=== PATIENT | male | born 1995 | race African-American/Black ===

== ENCOUNTER 2019-04-05 14:48 | Inpatient (IN) | payer OTHER ==
--- NOTE | 2019-04-05 15:05 | PDOC ---
Rapid Medical Evaluation Time Seen by Provider: 04/05/19 15:00 Medical Evaluation: Allergies Allergy/AdvReac Type Severity Reaction Status Date / Time No Known Allergies Allergy Verified 04/05/19 15:02 Vital Signs Temp Pulse Resp BP Pulse Ox 98.4 F 63 18 130/62 99 04/05/19 15:01 04/05/19 15:01 04/05/19 15:01 04/05/19 15:01 04/05/19 15:01 04/05/19 15:03 The patient c/o: right lower abd pain w/ constipation x 1 week, on satruday took pepto and MOM and now having diarrhea and worsening cramping, no other complaints Patient on brief exam: right lower abd pain, bs + x 4 Patient ordered for: labs, kub Patient to proceed to the ED Discharge Disposition - Diagnosis Abdominal pain - Referrals - Patient Instructions - Post Discharge Activity
[2019-04-05] MEDS ORDERED: ACETAMINOPHEN 1000 MG/100 ML VIAL (NON FORMULARY) IVPB ONE (15:42)
[2019-04-05 15:49] LABS: BASO % 0.3 % (0-2.0); HEMATOCRIT 46.8 % (35.4-49); HEMOGLOBIN 15.7 GM/dL (11.7-16.9); LYMPH % 10.9 % (8-40); MCH 27.8 pg (25.7-33.7); MCHC 33.5 g/dl (32.0-35.9); MEAN CELL VOLUME 82.9 fl (80-96); MEAN PLT VOLUME 8.4 fl (7.5-11.1); MONO % 10.8 % (3.8-10.2); PLATELET COUNT 276 K/MM3 (134-434); RBC 5.65 M/mm3 (4.00-5.60); RDW 13.8 % (11.9-15.9); WHITE BLOOD COUNT 12.7 K/mm3 (4.0-10.0)
[2019-04-05] MEDS ORDERED: ACETAMINOPHEN INJECTION 100 ML IVPB ONE (15:55)
[2019-04-05 16:13] LABS: URINE APPEARANCE CLEAR; URINE BILIRUBIN NEGATIVE (NEGATIVE); URINE COLOR YELLOW; URINE GLUCOSE (UA) NEGATIVE (NEGATIVE); URINE KETONE TRACE (NEGATIVE); URINE LEUK ESTERASE NEGATIVE (NEGATIVE); URINE NITRITE NEGATIVE (NEGATIVE); URINE PROTEIN NEGATIVE (NEGATIVE); URINE UROBILINOGEN 0.2 mg/dL (0.2-1.0)
--- NOTE | 2019-04-05 16:37 | PDOC ---
History of Present Illness - General Chief Complaint: Pain, Acute Stated Complaint: LOWER ABN PAIN Time Seen by Provider: 04/05/19 15:00 History Source: Patient Exam Limitations: No Limitations - History of Present Illness Initial Comments: Pt is a 23 yo M, with no significant PMH, who is presenting with complaints of constipation and progressing abdominal pain. Pt states for the last 1.5 weeks, the pt has had constipation, which is abnormal for him. Pt took miralax and mag citrate 3 days ago, which produced abdominal cramping and loose stool every hour since then. Pt also is lactose intolerant, and ate ice cream before the onset of diarrhea. Pt states the abdominal pain is worsening, and has shifted from his mid abdomen to his RLQ since yesterday. The pain is sharp and cramping , comes in waves, and is worsened with movement. Pt denies GI history. Pt also states he has had to "strain to urinate" since the constipation started, but denies hematuria or frequency. Pt denies any fevers/chills, headache, vision changes, syncope, chest pain, palpitations, SOB, nausea/vomiting, testicular pain or swelling, penile discharge or lesions, or leg swelling. Social: Pt endorses social alcohol use. Pt denies any cigarette or drug use. Pt denies any recent travel or sick contacts. Surgical: no relevant history. Family: no relevant history. No family appendicitis, kidney stones, GI issues. 04/05/19 16:37 Past History - Travel Traveled outside of the country in the last 30 days: No Close contact w/someone who was outside of country & ill: No - Past Medical History Allergies/Adverse Reactions: Allergies Allergy/AdvReac Type Severity Reaction Status Date / Time No Known Allergies Allergy Verified 04/05/19 15:02 Home Medications: Ambulatory Orders NK [No Known Home Medication] 04/05/19 COPD: No - Suicide/Smoking/Psychosocial Hx Smoking History: Never smoked Have you smoked in the past 12 months: No Information on smoking cessation initiated: No Hx Alcohol Use: No Drug/Substance Use Hx: No Review of Systems - Review of Systems Able to Perform ROS?: Yes Is the patient limited Albanian proficient: No Constitutional: No: Chills, Diaphoresis, Fever, Loss of Appetite, Malaise, Weakness, Weight Stable HEENTM: No: Recent change in vision, Nose Congestion, Throat Pain, Throat Swelling Respiratory: No: Cough, Orthopnea, Shortness of Breath Cardiac (ROS): No: Chest Pain, Edema, Irregular Heart Rate, Lightheadedness, Palpitations, Syncope, Chest Tightness ABD/GI: Yes: See HPI, Constipated, Diarrhea, Poor Appetite, Poor Fluid Intake, Abdominal cramping. No: Abdominal Distended, Nausea, Vomiting, Indigestion : Yes: Other ("strain" to urinate, no dysuria). No: Burning, Dysuria, Discharge, Frequency, Flank Pain, Hematuria, Pain, Urgency, Testicular Swelling , Lesions, Testicular Pain Musculoskeletal: No: Back Pain, Joint Pain Integumentary: No: Rash Neurological: No: Headache, Weakness, Dizziness Psychiatric: No: Sleep Pattern Change, Change in Appetite Endocrine: No: Increased Urine, Change in Weight Hematologic/Lymphatic: No: Anemia, Blood Clots, Easy Bleeding, Easy Bruising All Other Systems: Reviewed and Negative *Physical Exam - Vital Signs Last Vital Signs Temp Pulse Resp BP Pulse Ox 98.4 F 63 18 130/62 99 04/05/19 15:04/05/19 15:04/05/19 15:04/05/19 15:04/05/19 15:01 - Physical Exam Comments: Vitals stable, pt afebrile. Pt in NAD, normal body habitus. Pt alert and oriented x3. oven drier tender generally intact, muscular strength and sensation intact. No midline spinal tenderness, step-offs, or crepitus. Head normocephalic, atraumatic. Eyes PERRLA, EOMI. Oropharynx without erythema or exudates, no LAD b/l. No nasal congestion, hearing intact. Clear heart sounds, S1/S2, no JVD, b/l pedal edema, or heart murmur. Clear lung sounds, no respiratory distress, wheezes, crackles, or accessory muscle use. RLQ abdominal tenderness to palpation. No CVA tenderness to palpation, no rebound, no guarding. Abdomen soft, non-distended, and with normoactive bowel sounds. No abdominal tenderness with hip flexion or extension. No testicular TTP. No penile discharge nor lesions. Skin without jaundice or rash. 04/05/19 16:30 ED Treatment Course - LABORATORY CBC & Chemistry Diagram: 04/05/19 15:40 04/05/19 15:40 - ADDITIONAL ORDERS Additional order review: Laboratory Results 04/05/19 16:00 Urine Color Yellow Urine Appearance Clear Urine pH 6.0 Ur Specific [place] 1.028 Urine Protein Negative Urine Glucose (UA) Negative Urine Ketones Trace H Urine Blood Negative Urine Nitrite Negative Urine Bilirubin Negative Urine Urobilinogen 0.2 Ur Leukocyte Esterase Negative 04/05/19 15:40 RBC 5.65 H MCV 82.9 MCHC 33.5 RDW 13.8 MPV 8.4 Neutrophils % 77.0 Lymphocytes % 10.9 Monocytes % 10.8 H Eosinophils % 1.0 Basophils % 0.3 - RADIOLOGY Radiology Studies Ordered: Category Date Time Status ABDOMEN & PELVIS CT WITH CONTR [CT] Stat CT Scan 04/05/19 16:15 Ordered ABDOMEN FLAT & UPRIGHT [RAD] Stat Radiology 04/05/19 16:26 Ordered - Medications Given in the ED: ED Medications Discontinued Medications Generic Name Dose Route Start Last Admin Trade Name Freq PRN Reason Stop Dose Admin Acetaminophen 1,000 mg 04/05/19 15:42 04/05/19 16:00 Ofirmev Injection - IVPB 04/05/19 15:43 1,000 mg ONCE ONE Administration Medical Decision Making - Medical Decision Making Pt was seen at bedside, also will be seen by attending Dr. Abel. Pt presenting with complaints of constipation and progressing abdominal pain. Pt states for the last 1.5 weeks, the pt has had constipation, which is abnormal for him. Pt took miralax and mag citrate 3 days ago, which produced abdominal cramping and loose stool every hour since then. Pt also is lactose intolerant, and ate ice cream before the onset of diarrhea. Pt states the abdominal pain is worsening, and has shifted from his mid abdomen to his RLQ since yesterday. The pain is sharp and cramping, comes in waves, and is worsened with movement. Pt denies GI history. Pt also states he has had to "strain to urinate" since the constipation started, but denies hematuria or frequency. Pt denies any fevers/ chills, headache, vision changes, syncope, chest pain, palpitations, SOB, nausea /vomiting, testicular pain or swelling, penile discharge or lesions, or leg swelling. Considering appendicitis vs acute GI virus/bacterial infection vs diverticulitis vs colitis vs constipation worsened by dietary intolerances. Ordered work-up including CBC, CMP, UA, urine g/c/trichomonas, abdominal x-ray ( ordered in fast track), and abd/pelvis CT with IV contrast to eval for appendicitis and colitis. Provided 1 g ofirmev for improvement of pain. Will continue to reassess pt and monitor for symptomatic improvement. 04/05/19 16:32 CBC: WBC elevated 12.7 CMP WNL Pt taken for CT scan UA WNL, no evidence of UTI 04/05/19 17:20 CT abd/pelvis: Impression: Findings are seen within the right lower quadrant which could be on the basis of appendicitis with contiguous tubular shaped abscesses versus secondary to inflammatory bowel disease possibly with associated abscesses. Additional evaluation utilizing supplemental CT with oral contrast is suggested. 04/05/19 17:25 Pt placed NPO. Paging surgical team. Providing 4.5 g IV zosyn. 04/05/19 17:[address] Napier, who agrees with abx choice, and suggests admission to med /surg to treat abscess. Pt admitted to hospitalist team (Dr. Mendez). Pt stable and awaiting bed. 04/05/19 18:58 *DC/Admit/Observation/Transfer Diagnosis at time of Disposition: Appendicitis with abscess Abdominal pain Qualifiers: Abdominal location: right lower quadrant Qualified Code(s): R10.31 - Right lower quadrant pain - Discharge Dispostion Condition at time of disposition: Stable Decision to Admit order: Yes - Referrals - Patient Instructions - Post Discharge Activity
[2019-04-05 16:45] LABS: ALBUMIN 4.3 g/dl (3.4-5.0); BILIRUBIN,TOTAL 0.7 mg/dL (0.2-1); CALCIUM 9.6 mg/dL (8.5-10.1); CREATININE 0.9 mg/dL (0.55-1.3); POTASSIUM 4.5 mmol/L (3.5-5.1); TOT PROT 8.9 g/dl (6.4-8.2)
[2019-04-05] MEDS ORDERED: PIPERACILLIN/TAZOB 3.375 GM 4.5 GM in DEXTROSE 5%-WATER - 50 ML IVPB ONE (17:23)
[2019-04-05] MEDS ORDERED: PIPERACILLIN/TAZOB 4.5 GM 4.5 GM/100 ML BAG IVPB ONE (18:17)
--- NOTE | 2019-04-05 18:20 | HP ---
CHIEF COMPLAINT:Abdominal Pain , Diarrhea PCP:none HISTORY OF PRESENT ILLNESS: 23YOM with no significant past medical history, presenting with diarrhea and RLQ abdominal cramping. As per patient, he was constipated for a week and experiencing RLQ abdominal pain thus, he took Pepto Bismol and Magnesium Citrate 4 days ago onsetting his current symptoms. He notes mild straining with urination secondary to his symptoms, prompting his arrival to the ED. Denies any testicular pain or discharge. Denies fever, chills, chest pain, SOB, palpitation, dizziness, weakness, N, V, D, leg swelling, No sick contacts or travel. No new changes in medications. No suspicious food intake Allergies: None Past Medical History: as documented in EMR/HPI Social history: Lives with family. No tobacco, ETOH or drug use. Surgical history: None reported. Meds: as documented in EMR PMD: Patient does not follow with a PCP. ER course was notable for: (1)cbc, cmp (2)CT Abdomen /pelvic (3)Zosyn and IV fluids Recent Travel: denies PAST MEDICAL HISTORY: constipation , lactose intolerance PAST SURGICAL HISTORY: none Social History: Smoking:denies Alcohol:socially Drugs: denies Family History:non contributory Allergies No Known Allergies Allergy (Verified 04/05/19 15:02) HOME MEDICATIONS: Home Medications Medication Instructions Recorded NK [No Known Home Medication] 04/05/19 REVIEW OF SYSTEMS CONSTITUTIONAL: Absent: fever, chills, diaphoresis, generalized weakness, malaise, loss of appetite, weight change HEENT: Absent: rhinorrhea, nasal congestion, throat pain, throat swelling, difficulty swallowing, mouth swelling, ear pain, eye pain, visual changes CARDIOVASCULAR: Absent: chest pain, syncope, palpitations, irregular heart rate, lightheadedness , peripheral edema RESPIRATORY: Absent: cough, shortness of breath, dyspnea with exertion, orthopnea, wheezing, stridor, hemoptysis GASTROINTESTINAL: Absent: abdominal pain, abdominal distension, nausea, vomiting, diarrhea, constipation, melena, hematochezia GENITOURINARY: Absent: dysuria, frequency, urgency, hesitancy, hematuria, flank pain, genital pain MUSCULOSKELETAL: Absent: myalgia, arthralgia, joint swelling, back pain, neck pain SKIN: Absent: rash, itching, pallor HEMATOLOGIC/IMMUNOLOGIC: Absent: easy bleeding, easy bruising, lymphadenopathy, frequent infections ENDOCRINE: Absent: unexplained weight gain, unexplained weight loss, heat intolerance, cold intolerance NEUROLOGIC: Absent: headache, focal weakness or paresthesias, dizziness, unsteady gait, seizure, mental status changes, bladder or bowel incontinence PSYCHIATRIC: Absent: anxiety, depression, suicidal or homicidal ideation, hallucinations. PHYSICAL EXAMINATION Vital Signs - 24 hr 04/05/19 15:01 Temperature 98.4 F Pulse Rate 63 Respiratory 18 Rate Blood Pressure 130/62 O2 Sat by Pulse 99 Oximetry (%) GENERAL: AAOx3 in NAD HEAD: NC/AT EYES: EOMI, Conjunctiva clear, sclera anicteric ENT: moist mucous membrane NECK: Supple, no JVD LUNGS: CTA B/L, no crackles no wheezing no accessory muscle use. HEART: RRR, NSR, normal s1, s2, murmur no M/R/G ABDOMEN: Soft, RLQ and suprapubic tenderness pswas is negative [place] burnie postive , +BS 4 Q, no CVA Tenderness LOWER EXTREMITIES: no edema, +2DP pulse, NEUROLOGICAL: No focal deficit. Normal speech. gait not observed. PSYCHIATRIC: Cooperative. Good eye contact. Appropriate mood and affect. SKIN: Warm, dry, Laboratory Results - last 24 hr 04/05/19 04/05/19 04/05/19 15:40 15:40 16:00 WBC 12.7 H RBC 5.65 H Hgb 15.7 Hct 46.8 MCV 82.9 MCH 27.8 MCHC 33.5 RDW 13.8 Plt Count 276 MPV 8.4 Absolute Neuts (auto) 9.8 H Neutrophils % 77.0 Lymphocytes % 10.9 Monocytes % 10.8 H Eosinophils % 1.0 Basophils % 0.3 Nucleated RBC % 0 Sodium 136 Potassium 4.5 Chloride 101 Carbon Dioxide 25 Anion Gap 10 BUN 13 Creatinine 0.9 Est GFR (CKD-EPI)AfAm 139.04 Est GFR (CKD-EPI)NonAf 119.96 Random Glucose 69 L Calcium 9.6 Total Bilirubin 0.7 AST 29 ALT 40 Alkaline Phosphatase 124 H Total Protein 8.9 H Albumin 4.3 Urine Color Yellow Urine Appearance Clear Urine pH 6.0 Ur Specific [place] 1.028 Urine Protein Negative Urine Glucose (UA) Negative Urine Ketones Trace H Urine Blood Negative Urine Nitrite Negative Urine Bilirubin Negative Urine Urobilinogen 0.2 Ur Leukocyte Esterase Negative CBC, BMP 04/05/19 15:40 04/05/19 15:40 ASSESSMENT/PLAN: 23 year old male with history of constipation and lactose intolerance presented with 10 days history of abdominal pain was found to have appendicitis with possible abscess admitted to M/S for observation # Acute appendicitis with possible abscess * mild leukocytosis and RLL pain with positive CT scan * NPO * IV fluids RL@ 125 CC/hr * pain control Morphine 2 Mg IV Q 8hr * Zosyn IV Q 8hr * CT A/P reviewed will repeat with oral contrast * Surgery consult DR Napier * DVTS proph SCDS * repeat labs in AM , cbc , cmp , Type and screen , INR , PTT * Monitor lytes * Admit to M/S # Constipation * educated about life style change ,exercise and high fiber diet Visit type - Emergency Visit Emergency Visit: Yes ED Registration Date: 04/05/19 Care time: The patient presented to the Emergency Department on the above date and was hospitalized for further evaluation of their emergent condition. - New Patient This patient is new to me today: Yes Date on this admission: 04/05/19 - Critical Care Critical Care patient: No
--- NOTE | 2019-04-05 18:45 | PN ---
Teaching Attending Note Name of Resident: Ko Esparza ATTENDING PHYSICIAN STATEMENT I saw and evaluated the patient. I reviewed the resident's note and discussed the case with the resident. I agree with the resident's findings and plan as documented. SUBJECTIVE: Ongoing RLQ abdominal pain. No nausea/vomiting. Vague History of bloody diarrhea on Thursday. OBJECTIVE: Afebrile, Hemodynamically Stable. Last Vital Signs Temp Pulse Resp BP Pulse Ox 98.4 F 63 18 130/62 99 04/05/19 15:01 04/05/19 15:01 04/05/19 15:01 04/05/19 15:04/05/19 15:01 HEENT - Atraumatic, Normocephalic Heart - S1, S2, RRR Lungs - Clear to auscultation Abdomen - Soft, RLQ tenderness. Bowel Sounds normal. Extremities - No edema, no calf tenderness Laboratory Results - last 24 hr 04/05/19 04/05/19 04/05/19 15:40 15:40 16:00 WBC 12.7 H RBC 5.65 H Hgb 15.7 Hct 46.8 MCV 82.9 MCH 27.8 MCHC 33.5 RDW 13.8 Plt Count 276 MPV 8.4 Absolute Neuts (auto) 9.8 H Neutrophils % 77.0 Lymphocytes % 10.9 Monocytes % 10.8 H Eosinophils % 1.0 Basophils % 0.3 Nucleated RBC % 0 Sodium 136 Potassium 4.5 Chloride 101 Carbon Dioxide 25 Anion Gap 10 BUN 13 Creatinine 0.9 Est GFR (CKD-EPI)AfAm 139.04 Est GFR (CKD-EPI)NonAf 119.96 Random Glucose 69 L Calcium 9.6 Total Bilirubin 0.7 AST 29 ALT 40 Alkaline Phosphatase 124 H Total Protein 8.9 H Albumin 4.3 Urine Color Yellow Urine Appearance Clear Urine pH 6.0 Ur Specific [place] 1.028 Urine Protein Negative Urine Glucose (UA) Negative Urine Ketones Trace H Urine Blood Negative Urine Nitrite Negative Urine Bilirubin Negative Urine Urobilinogen 0.2 Ur Leukocyte Esterase Negative Home Medications Medication Instructions Recorded NK [No Known Home Medication] 04/05/19 ASSESSMENT AND PLAN: 23 year old male with history of constipation presents with over 1 week history of RLQ abdominal discomfort with associated constipation, followed by profuse watery diarrhea after taking MOM. He reports some red watery stool 3 days ago, now just watery, no blood or mucus. No fever/chills. No nausea/vomiting. Acute Appendicitis with contiguous Abscesses versus IBD with abscess Afebrile, Hemodynamically Stable. Mild leukocytosis. No need for Surgery currently as per Dr. Napier, who recommends repeat CT A/P with oral contrast NPO, IV Abx (Zosyn), IV fluids. Analgesia with IV Morphine. GI consult tomorrow depending on results of repeat CT A/P with oral contrast. DVT Px - SCDs. Heparin held in the event of urgent surgery
--- NOTE | 2019-04-05 18:56 | PDOC ---
Documentation entered by Annabel Jaeger SCRIBE, acting as scribe for Abby Abel MD. Abby Abel MD: This documentation has been prepared by the Heide acuña Nirvannie, SCRIBE, under my direction and personally reviewed by me in its entirety. I confirm that the documentation accurately reflects all work, treatment, procedures, and medical decision making performed by me. Attending Attestation - Resident Resident Name: ShelbiMakayla - ED Attending Attestation I have performed the following: I have examined & evaluated the patient, The case was reviewed & discussed with the resident, I agree w/resident's findings & plan - HPI HPI: 04/05/19 17:16 23YOM with no significant past medical history, presenting with diarrhea and RLQ abdominal cramping. As per patient, he was constipated for a week and experiencing RLQ abdominal pain thus, he took Pepto Bismol and Magnesium Citrate 4 days ago onsetting his current symptoms. He notes mild straining with urination secondary to his symptoms, prompting his arrival to the ED. Denies any testicular pain or discharge. Denies fever, chills, chest pain, SOB, palpitation, dizziness, weakness, N, V, D, leg swelling, No sick contacts or travel. No new changes in medications. No suspicious food intake Allergies: None Past Medical History: as documented in EMR/HPI Social history: Lives with family. No tobacco, ETOH or drug use. Surgical history: None reported. Meds: as documented in EMR PMD: Patient does not follow with a PCP. - Physicial Exam PE: 04/05/19 17:17 Agree with the resident's HPI and PE as documented in the electronic medical record. NAD, well appearing, EOMI, PERRL, MMM, nl conjunctiva, anicteric; neck supple. lungs clear, RRR, abdomen soft +RLQ tenderness. Back nontender. ALMARAZ x4, no focal neuro deficits. No peripheral edema. normal color for ethnicity, WWP. exam unremarkable, performed by resident. 04/05/19 18:56 04/05/19 18:56 - Medical Decision Making 04/05/19 18:53 History of present illness physical examination as documented Vital signs reviewed, normal, no fevers. Basic laboratory results were initiated for him RME, remarkable for leukocytosis of 12 K, otherwise lites and chemistries are normal. Analgesia, IV fluids, nothing by mouth. CT imaging obtained to evaluate for alternative etiology of his abdominal pain including appendectomy sinusitis, abscess, mesenteric adenitis, urinary tract infection, hernia, diverticulitis, colitis, constipation. CT imaging revealed IBD versus abscess adjacent to the appendix. Surgery consultation with Dr. Napier, medical management for now, by mouth contrast and admit for medical management for now, possible surgical intervention at this time pending repeat imaging. 04/06/19 12:26
[2019-04-05] MEDS ORDERED: LACTATED RINGERS SOLUTION 1,000 ML IV SCH (19:00)
[2019-04-05 20:13] VITALS: BMI 26.9
[2019-04-05] MEDS: MORPHINE SULFATE 2 MG/ML VIAL IVPUSH PRN (20:18)
[2019-04-05] MEDS ORDERED: PIPERACILLIN/TAZOBACTAM 3.375 GM VIAL IVPB ONE (20:33)
[2019-04-05] MEDS ORDERED: MORPHINE SULFATE 2 MG/ML VIAL IVPUSH ONE (22:37)
[2019-04-05] MEDS ORDERED: MORPHINE SULFATE 2 MG/ML VIAL SQ ONE (22:37)
[2019-04-06] MEDS ORDERED: ACETAMINOPHEN 1000 MG/100 ML VIAL (NON FORMULARY) IVPB PRN (02:37)
[2019-04-06] MEDS ORDERED: PIPERACILLIN/TAZOBACTAM 3.375 GM VIAL IVPB ONE ×3 (02:40→17:51)
[2019-04-06] MEDS ORDERED: DEXTROSE 5%-WATER - 50 ML IVPB ONE ×3 (02:40→17:51)
[2019-04-06] MEDS: PIPERACILLIN/TAZOB 3.375 GM 3.375 GM in DEXTROSE 5%-WATER - 50 ML IVPB SCH ×2 (02:54→09:13)
[2019-04-06] MEDS: MORPHINE SULFATE 2 MG/ML VIAL IVPUSH PRN ×2 (07:57→22:06)
[2019-04-06 08:59] LABS: BASO % 0.2 % (0-2.0); EOS % 0.3 % (0-4.5); HEMATOCRIT 40.7 % (35.4-49); HEMOGLOBIN 13.9 GM/dL (11.7-16.9); LYMPH % 5.2 % (8-40); MCH 27.9 pg (25.7-33.7); MCHC 34.1 g/dl (32.0-35.9); MEAN PLT VOLUME 8.1 fl (7.5-11.1); MONO % 11.7 % (3.8-10.2); NEUT % 82.6 % (42.8-82.8); PLATELET COUNT 257 K/MM3 (134-434); RBC 4.97 M/mm3 (4.00-5.60); RDW 13.7 % (11.9-15.9); WHITE BLOOD COUNT 15.1 K/mm3 (4.0-10.0)
[2019-04-06 09:07] LABS: INR 1.35 (0.83-1.09)
[2019-04-06 09:10] LABS: ACTIVATED PTT 35.4 SECONDS (25.2-36.5)
[2019-04-06 09:34] LABS: ALBUMIN 3.5 g/dl (3.4-5.0); BILIRUBIN,TOTAL 0.8 mg/dL (0.2-1); CALCIUM 9.1 mg/dL (8.5-10.1); POTASSIUM 4.8 mmol/L (3.5-5.1); TOT PROT 7.4 g/dl (6.4-8.2)
[2019-04-06] MEDS ORDERED: MORPHINE SULFATE 2 MG/ML VIAL IVPUSH ONE (09:59)
--- NOTE | 2019-04-06 10:42 | CONSULT ---
- Consultation REQUESTING PROVIDER: Shelbi COLLADO CONSULT REQUEST: We have been asked to surgically evaluate this patient for ( specify). PCP:Rudi Mendez MD HISTORY OF PRESENT ILLNESS: ANUEL who is a 23 y/o male who presented to the [facility] ED w/ RLQ pain of ? 2 days preceeded by a few days of cramps and/or constipation ; pain which was first generalized then became localized to the RLQ; he has some diarrhea; he took some laaxatives; he has nausea and no vomiting; he denies any other GI/ c/o; pain is worse w/lying still and worse w/moving around; pain is constant and " knife like " in the RLQ; he has NOC. PMHx: none PSHx: none Home Medications Medication Instructions Recorded NK [No Known Home Medication] 04/05/19 Allergies Allergy/AdvReac Type Severity Reaction Status Date / Time No Known Allergies Allergy Verified 04/05/19 15:02 REVIEW OF SYSTEMS: CONSTITUTIONAL: Absent: fever, chills, diaphoresis, generalized weakness, malaise, loss of appetite, weight change CARDIOVASCULAR: Absent: chest pain, syncope, palpitations, irregular heart rate, lightheadedness , peripheral edema RESPIRATORY: Absent: cough, shortness of breath, dyspnea with exertion, wheezing, stridor, hemoptysis GASTROINTESTINAL: Absent: abdominal pain, abdominal distension, nausea, vomiting, diarrhea, constipation, melena, hematochezia GENITOURINARY: Absent: dysuria, frequency, urgency, hesitancy, hematuria, flank pain, genital pain MUSCULOSKELETAL: Absent: myalgia, arthralgia, joint swelling, back pain, neck pain SKIN: Absent: rash, itching, pallor HEMATOLOGIC/IMMUNOLOGIC: Absent: easy bleeding, easy bruising, lymphadenopathy NEUROLOGIC: Absent: headache, focal weakness, paresthesias, dizziness, unsteady gait, seizure, mental status changes, bladder or bowel incontinence PSYCHIATRIC: Absent: anxiety, depression, suicidal or homicidal ideation, hallucinations. PHYSICAL EXAM: GENERAL: Awake, alert, and fully oriented, in no acute distress. HEAD: Normal with no signs of trauma. EYES: , sclera anicteric, conjunctiva clear. NECK: Normal ROM, supple without lymphadenopathy, JVD, or masses. ABDOMEN: Soft, tender RLQ over McBurneys point, not distended, normoactive bowel sounds, guarding is present, no rebound, no masses. No organomegaly. No hernias; Rovsings and psoas and obturator signs are present. MUSCULOSKELETAL: Normal ROM at all joints. No bony deformities or tenderness. No CVA tenderness. UPPER EXTREMITIES: 2+ pulses, warm, well-perfused. No cyanosis. Cap refill <2 seconds. No peripheral edema. LOWER EXTREMITIES: 2+ pulses, warm, well-perfused. No calf tenderness. No peripheral edema. NEUROLOGICAL: Normal speech, gait not observed. PSYCH: Cooperative. Good eye contact. Appropriate mood and affect. SKIN: Warm, dry, normal turgor, no rashes or lesions noted. Vital Signs Temperature 98.5 F 04/06/19 10:00 Pulse Rate 62 04/06/19 10:00 Respiratory Rate 18 04/06/19 10:00 Blood Pressure 140/61 04/06/19 10:00 O2 Sat by Pulse Oximetry (%) 99 04/06/19 09:00 Lab Results WBC 15.1 K/mm3 (4.0-10.0) H 04/06/19 08:38 RBC 4.97 M/mm3 (4.00-5.60) 04/06/19 08:38 Hgb 13.9 GM/dL (11.7-16.9) 04/06/19 08:38 Hct 40.7 % (35.4-49) 04/06/19 08:38 MCV 82.0 fl (80-96) 04/06/19 08:38 MCHC 34.1 g/dl (32.0-35.9) 04/06/19 08:38 RDW 13.7 % (11.9-15.9) 04/06/19 08:38 Plt Count 257 K/MM3 (134-434) 04/06/19 08:38 Sodium 138 mmol/L (136-145) 04/06/19 08:38 Potassium 4.8 mmol/L (3.5-5.1) 04/06/19 08:38 Chloride 101 mmol/L (98-107) 04/06/19 08:38 Carbon Dioxide 28 mmol/L (21-32) 04/06/19 08:38 Anion Gap 8 MMOL/L (8-16) 04/06/19 08:38 BUN 11 mg/dL (7-18) 04/06/19 08:38 Creatinine 1.0 mg/dL (0.55-1.3) 04/06/19 08:38 Random Glucose 78 mg/dL (74-106) 04/06/19 08:38 Calcium 9.1 mg/dL (8.5-10.1) 04/06/19 08:38 INR 1.35 (0.83-1.09) H 04/06/19 08:38 CT scan w/was equivocal and was repeated w/ oral contrast and appears to be c/w acute appendicitis and not IBD or other pathology. IMP: acute appendicitis PLAN: lap appendectomy possible open; r/b/t/a's d/w the patient and he will sign inforned consent. Ahmet Napier MD FACS
--- NOTE | 2019-04-06 10:44 | EKG ---
Test Reason : Blood Pressure : / mmHG Vent. Rate : 055 BPM Atrial Rate : 055 BPM P-R Int : 146 ms QRS Dur : 086 ms QT Int : 412 ms P-R-T Axes : 034 074 010 degrees QTc Int : 394 ms SINUS BRADYCARDIA OTHERWISE NORMAL ECG NO PREVIOUS ECGS AVAILABLE Confirmed by VANI COLLADO, WOLFGANG ([id number]) on 04/06/2019 10:43:35 AM Referred By: Confirmed By:WOLFGANG LUDWIG MD
--- NOTE | 2019-04-06 10:44 | EKG ---
Test Reason : Blood Pressure : / mmHG Vent. Rate : 080 BPM Atrial Rate : 080 BPM P-R Int : 154 ms QRS Dur : 098 ms QT Int : 348 ms P-R-T Axes : 069 079 -08 degrees QTc Int : 401 ms NORMAL SINUS RHYTHM ST ELEVATION, CONSIDER EARLY REPOLARIZATION, PERICARDITIS, OR INJURY ABNORMAL ECG Confirmed by WOLFGANG LUDWIG MD ([id number]) on 04/06/2019 11:28:28 AM Referred By: Jessica ORR Confirmed By:WOLFGANG LUDWIG MD
[2019-04-06] MEDS ORDERED: PROPOFOL 20 ML ONE (12:20)
[2019-04-06] MEDS ORDERED: fentaNYL CITRATE 250 MCG/5 ML VIAL ONE (12:20)
[2019-04-06] MEDS ORDERED: ROCURONIUM BROMIDE 50 MG/5 ML VIAL ONE ×2 (12:20→13:09)
[2019-04-06] MEDS ORDERED: MIDAZOLAM HCL 2 MG/2 ML SINGLE DOSE VIAL ONE (12:21)
[2019-04-06] MEDS ORDERED: DEXAMETHASONE SOD PHOSPHATE 4 MG/1 ML VIAL ONE (12:21)
[2019-04-06] MEDS ORDERED: KETOROLAC TROMETHAMINE 30 MG/1 ML VIAL ONE (12:21)
[2019-04-06] MEDS ORDERED: LIDOCAINE HCL/PF 2% SDV 5ML VIAL ONE (12:21)
[2019-04-06] MEDS ORDERED: GLYCOPYRROLATE 0.2 MG/1 ML VIAL ONE (12:50)
[2019-04-06] MEDS ORDERED: NEOSTIGMINE METHYLSULFATE 0.5 MG/ML - 10 ML MDV ONE (12:50)
[2019-04-06] MEDS ORDERED: BUPIVACAINE HCL/PF 0.5% (5MG/ML) 10 ML VIAL IJ ONE ×2 (12:57)
[2019-04-06] MEDS ORDERED: HYDROmorphone HCl 2 MG/ML VIAL ONE (14:16)
--- NOTE | 2019-04-06 14:55 | PN ---
Physical Exam: SUBJECTIVE: Patient seen this morning and reports continued pain and diarrhea. No acute events. OBJECTIVE: Vital Signs Temperature 98.5 F 04/06/19 10:00 Pulse Rate 62 04/06/19 10:00 Respiratory Rate 18 04/06/19 10:00 Blood Pressure 140/61 04/06/19 10:00 O2 Sat by Pulse Oximetry (%) 99 04/06/19 09:00 GENERAL: The patient is awake, alert, and fully oriented, in no acute distress. LUNGS: Breath sounds equal, clear to auscultation bilaterally, no wheezes, no crackles, no accessory muscle use. HEART: Regular rate and rhythm, S1, S2 without murmur, rub or gallop. ABDOMEN: tenderness mid epigastric, pain to right quadrant EXTREMITIES: 2+ pulses, warm, well-perfused, no edema. SKIN: Warm, dry, normal turgor, no rashes or lesions noted CBCD WBC 15.1 K/mm3 (4.0-10.0) H 04/06/19 08:38 RBC 4.97 M/mm3 (4.00-5.60) 04/06/19 08:38 Hgb 13.9 GM/dL (11.7-16.9) 04/06/19 08:38 Hct 40.7 % (35.4-49) 04/06/19 08:38 MCV 82.0 fl (80-96) 04/06/19 08:38 MCHC 34.1 g/dl (32.0-35.9) 04/06/19 08:38 RDW 13.7 % (11.9-15.9) 04/06/19 08:38 Plt Count 257 K/MM3 (134-434) 04/06/19 08:38 MPV 8.1 fl (7.5-11.1) 04/06/19 08:38 CMP Sodium 138 mmol/L (136-145) 04/06/19 08:38 Potassium 4.8 mmol/L (3.5-5.1) 04/06/19 08:38 Chloride 101 mmol/L (98-107) 04/06/19 08:38 Carbon Dioxide 28 mmol/L (21-32) 04/06/19 08:38 Anion Gap 8 MMOL/L (8-16) 04/06/19 08:38 BUN 11 mg/dL (7-18) 04/06/19 08:38 Creatinine 1.0 mg/dL (0.55-1.3) 04/06/19 08:38 Calcium 9.1 mg/dL (8.5-10.1) 04/06/19 08:38 Total Bilirubin 0.8 mg/dL (0.2-1) 04/06/19 08:38 AST 20 U/L (15-37) 04/06/19 08:38 ALT 29 U/L (13-61) 04/06/19 08:38 Alkaline Phosphatase 104 U/L (45-117) 04/06/19 08:38 Total Protein 7.4 g/dl (6.4-8.2) 04/06/19 08:38 Albumin 3.5 g/dl (3.4-5.0) 04/06/19 08:38 Active Medications Acetaminophen (Ofirmev Injection -) 1,000 mg IVPB Q6H PRN PRN Reason: PAIN OR FEVER Last Admin: 04/06/19 02:54 Dose: 1,000 mg Lactated Ringer's (Lactated Ringers Solution) 1,000 mls @ 125 mls/hr IV ASDIR BUSTER Last Admin: 04/05/19 22:32 Dose: Not Given Piperacillin Sod/Tazobactam (Sod 3.375 gm/ Dextrose) 50 mls @ 100 mls/hr IVPB Q8H-IV BUSTER; Protocol Piperacillin Sod/Tazobactam (Sod 3.375 gm/ Dextrose) 50 mls @ 100 mls/hr IVPB Q8H-IV BUSTER Stop: 04/06/19 18:29 Last Admin: 04/06/19 09:13 Dose: 100 mls/hr Morphine Sulfate (Morphine Sulfate) 2 mg IVPUSH Q4H PRN PRN Reason: PAIN LEVEL 6-10 Last Admin: 04/06/19 07:57 Dose: 2 mg ASSESSMENT/PLAN: Patient is a 23 y/o male with no past medical history who is admitted for appendicitis. #Appendicitis - cannot r/o possible abscess - ABD/ Pelvis CT: prominent concentric wall thickening is seen involving the cecum to a lesser extent the lower half of the ascending colon and termnal ileum. normal appearing appendix - ABD xray: no pathology, no constipation - patient for surgery today with Dr. Napier, pain management per surgery service - on Zosyn - continue LR and morphine for pain #DVT ppx - early ambulation FEN - advance diet as per surgery Dispo: as suggested by surgery, monitor clinically Visit type - Emergency Visit Emergency Visit: No - New Patient This patient is new to me today: Yes Date on this admission: 04/06/19 - Critical Care Critical Care patient: No
--- NOTE | 2019-04-06 15:50 | OP ---
Operative Note - Note: Operative Date: 04/06/19 Pre-Operative Diagnosis: Acute appendicitis Operation: Attempted laprascopic appendectomy. Converted to open (poor visualization of anatomy). Findings: Identified terminal ileum. Traced teniae coli from right colon to cecum...no identifiable appendix. Extensive phlegmon (in region of where appendix should be ) Post-Operative Diagnosis: Same as Pre-op Surgeon: Ahmet Napier Actuarial Mathematician: Juan Mcintosh Anesthesiologist/SHELL FREEZING MACHINE OPERATOR: Ralf Patel Anesthesia: General Specimens Removed: None Estimated Blood Loss (mls): 20 Fluid Volume Replaced (mls): 1,000 Operative Report Dictated: Yes
--- NOTE | 2019-04-06 15:54 | SURG ---
Surgery Pourer Crane Ladle Note Pourer Crane Ladle: Juan Mcintosh PA-C Date of Service: 04/06/19 Diagnosis: Acute appendicitis Procedure: Laprascopic converted to open exploration. JOHN drain I was present for the entirety of the operative procedure. For further detail, please refer to operative report. Visit type - Case Type Case Type: ED Admission - Emergency Emergency Visit: Yes ED Registration Date: 04/05/19 Care time: The patient presented to the Emergency Department on the above date and was hospitalized for further evaluation of their emergent condition. - New patient This patient is new to me today: Yes Date on this admission: 04/06/19
--- NOTE | 2019-04-06 16:31 | PN ---
Teaching Attending Note Name of Resident: Renetta Hartley ATTENDING PHYSICIAN STATEMENT I saw and evaluated the patient. I reviewed the resident's note and discussed the case with the resident. I agree with the resident's findings and plan as documented. SUBJECTIVE: Worsening RLQ abdominal pain. No nausea/vomiting. Vague History of bloody diarrhea 4 days ago, now resolved. OBJECTIVE: Febrile, Tmax 102.9, Hemodynamically Stable. Last Vital Signs Temp Pulse Resp BP Pulse Ox 98.5 F 62 18 140/61 99 04/06/19 10:00 04/06/19 10:00 04/06/19 10:04/06/19 10:04/06/19 09:00 Heart - S1, S2, RRR Lungs - Clear to auscultation Abdomen - Soft, RLQ tenderness. Bowel Sounds normal. Extremities - No edema, no calf tenderness Laboratory Results - last 24 hr 04/05/19 04/06/19 04/06/19 15:40 08:38 08:38 WBC 15.1 H RBC 4.97 Hgb 13.9 Hct 40.7 MCV 82.0 MCH 27.9 MCHC 34.1 RDW 13.7 Plt Count 257 MPV 8.1 Absolute Neuts (auto) 12.5 H Neutrophils % 82.6 Lymphocytes % 5.2 L D Monocytes % 11.7 H Eosinophils % 0.3 Basophils % 0.2 Nucleated RBC % 0 PT with INR 16.00 H INR 1.35 H PTT (Actin FS) 35.4 Sodium 136 Potassium 4.5 Chloride 101 Carbon Dioxide 25 Anion Gap 10 BUN 13 Creatinine 0.9 Est GFR (CKD-EPI)AfAm 139.04 Est GFR (CKD-EPI)NonAf 119.96 Random Glucose 69 L Calcium 9.6 Total Bilirubin 0.7 AST 29 ALT 40 Alkaline Phosphatase 124 H Total Protein 8.9 H Albumin 4.3 Blood Type Antibody Screen 04/06/19 04/06/19 04/06/19 08:38 08:38 11:45 WBC RBC Hgb Hct MCV MCH MCHC RDW Plt Count MPV Absolute Neuts (auto) Neutrophils % Lymphocytes % Monocytes % Eosinophils % Basophils % Nucleated RBC % PT with INR INR PTT (Actin FS) Sodium 138 Potassium 4.8 Chloride 101 Carbon Dioxide 28 Anion Gap 8 BUN 11 Creatinine 1.0 Est GFR (CKD-EPI)AfAm 122.41 Est GFR (CKD-EPI)NonAf 105.62 Random Glucose 78 Calcium 9.1 Total Bilirubin 0.8 AST 20 ALT 29 Alkaline Phosphatase 104 Total Protein 7.4 Albumin 3.5 Blood Type O POSITIVE O POSITIVE Antibody Screen Negative Current Medications Generic Name Dose Route Start Last Admin Trade Name Freq PRN Reason Stop Dose Admin Acetaminophen 1,000 mg 04/06/19 02:37 04/06/19 02:54 Ofirmev Injection - IVPB 1,000 mg Q6H PRN Administration PAIN OR FEVER Lactated Ringer's 1,000 mls @ 125 mls/hr 04/05/19 19:00 04/05/19 22:32 Lactated Ringers Solution IV Not Given ASDIR BUSTER Piperacillin Sod/Tazobactam 50 mls @ 100 mls/hr 04/07/19 02:00 Sod 3.375 gm/ Dextrose IVPB Q8H-IV BUSTER Protocol Piperacillin Sod/Tazobactam 50 mls @ 100 mls/hr 04/06/19 02:00 04/06/19 09:13 Sod 3.375 gm/ Dextrose IVPB 04/06/19 18:29 100 mls/hr Q8H-IV BUSTER Administration Morphine Sulfate 2 mg 04/05/19 18:57 04/06/19 07:57 Morphine Sulfate IVPUSH 2 mg Q4H PRN Administration PAIN LEVEL 6-10 ASSESSMENT AND PLAN: 23 year old male with history of constipation presents with over 1 week history of RLQ abdominal discomfort with associated constipation, followed by profuse watery diarrhea after taking MOM. He reports some red watery stool 3 days ago, now just watery, no blood or mucus. No fever/chills. No nausea/vomiting. Acute Appendicitis with contiguous Abscesses Now febrile. Hemodynamically Stable. Worsening leukocytosis For Surgical intervention - Appendectomy today. NPO, IV Abx (Zosyn), IV fluids. Analgesia with IV Morphine. DVT Px - SCDs. Heparin post-op.
[2019-04-06] MEDS ORDERED: ONDANSETRON 4 MG/2 ML VIAL IVPUSH PRN (16:41)
[2019-04-06] MEDS ORDERED: PROMETHAZINE HCL 25 MG/1 ML VIAL IVPUSH PRN (16:41)
[2019-04-06] MEDS: LACTATED RINGERS SOLUTION 1,000 ML IV SCH (17:53)
[2019-04-06] MEDS ORDERED: PIPERACILLIN/TAZOB 3.375 GM 3.375 GM in DEXTROSE 5%-WATER - 50 ML IVPB SCH (18:00)
[2019-04-07] MEDS: oxyCODONE HCL 5 MG TABLET PO PRN ×2 (00:05→10:51)
[2019-04-07] MEDS: ACETAMINOPHEN 1000 MG/100 ML VIAL (NON FORMULARY) IVPB PRN ×3 (01:33→20:46)
[2019-04-07] MEDS ORDERED: PIPERACILLIN/TAZOB 3.375 GM 3.375 GM in DEXTROSE 5%-WATER - 50 ML IVPB SCH (02:00)
[2019-04-07] MEDS: MORPHINE SULFATE 2 MG/ML VIAL IVPUSH PRN ×2 (02:30→09:20)
[2019-04-07] MEDS ORDERED: MORPHINE SULFATE 2 MG/ML VIAL SQ ONE (02:53)
[2019-04-07 07:23] LABS: ALBUMIN 3.2 g/dl (3.4-5.0); BILIRUBIN,TOTAL 1.3 mg/dL (0.2-1); CALCIUM 9.1 mg/dL (8.5-10.1); CREATININE 1.1 mg/dL (0.55-1.3); POTASSIUM 4.5 mmol/L (3.5-5.1); TOT PROT 7.2 g/dl (6.4-8.2)
[2019-04-07 07:25] LABS: HEMATOCRIT 38.2 % (35.4-49); HEMOGLOBIN 13.1 GM/dL (11.7-16.9); MCH 28.2 pg (25.7-33.7); MCHC 34.2 g/dl (32.0-35.9); MEAN CELL VOLUME 82.5 fl (80-96); PLATELET COUNT 271 K/MM3 (134-434); RBC 4.63 M/mm3 (4.00-5.60); RDW 13.5 % (11.9-15.9)
[2019-04-07 07:57] LABS: WHITE BLOOD COUNT 23.6 K/mm3 (4.0-10.0)
--- NOTE | 2019-04-07 09:34 | PN ---
Progress Note (short form) - Note Progress Note: Attending Surgeon POD#1 c/o pain; voided and had a bowel movement; states he is having cramps VSS T max 102 abdo-soft; tender; dressings c/d/i; JOHN serosanguinous; o/w negative WBC 23K IMP: appendicitis w/phlegmon PLAN: Trial of clear liquids; IVAB's; ID f/u; OOB; incentive spirometer; pain control Ahmet Napier MD FACS
--- NOTE | 2019-04-07 13:05 | PN ---
Teaching Attending Note Name of Resident: Renetta Hartley ATTENDING PHYSICIAN STATEMENT I saw and evaluated the patient. I reviewed the resident's note and discussed the case with the resident. I agree with the resident's findings and plan as documented. SUBJECTIVE: RLQ abdominal pain. No nausea/vomiting. Passed BM. Fever. No cough/ SOB/CP/Sputum OBJECTIVE: Febrile T 102.4, Hemodynamically Stable. Last Vital Signs Temp Pulse Resp BP Pulse Ox 98.5 F 64 20 136/56 L 100 04/07/19 05:58 04/07/19 05:58 04/07/19 05:58 04/07/19 05:58 04/06/19 21:00 Heart - S1, S2, RRR Lungs - Clear to auscultation Abdomen - Soft, RLQ tenderness. Surgical site dressed. JOHN drain in-situ with serosanguinous fluid. Bowel Sounds normal. Extremities - No edema, no calf tenderness Laboratory Results - last 24 hr 04/06/19 04/07/19 04/07/19 11:45 06:00 06:00 WBC 23.6 H RBC 4.63 Hgb 13.1 Hct 38.2 MCV 82.5 MCH 28.2 MCHC 34.2 RDW 13.5 Plt Count 271 MPV 9.0 D Sodium 138 Potassium 4.5 Chloride 102 Carbon Dioxide 26 Anion Gap 10 BUN 10 Creatinine 1.1 Est GFR (CKD-EPI)AfAm 109.09 Est GFR (CKD-EPI)NonAf 94.12 Random Glucose 86 Calcium 9.1 Total Bilirubin 1.3 H AST 22 ALT 23 Alkaline Phosphatase 91 Total Protein 7.2 Albumin 3.2 L Blood Type O POSITIVE Current Medications Generic Name Dose Route Start Last Admin Trade Name Cj PRN Reason Stop Dose Admin Acetaminophen 1,000 mg 04/06/19 16:33 04/07/19 01:33 Ofirmev Injection - IVPB 1,000 mg Q6H PRN Administration PAIN OR FEVER Lactated Ringer's 1,000 mls @ 125 mls/hr 04/06/19 16:33 04/06/19 17:53 Lactated Ringers Solution IV 125 mls/hr ASDIR BUSTER Administration Piperacillin Sod/Tazobactam 50 mls @ 100 mls/hr 04/07/19 02:00 Sod 3.375 gm/ Dextrose IVPB Q8H-IV BUSTER Protocol Morphine Sulfate 4 mg 04/07/19 09:30 Morphine Sulfate IVPUSH Q4H PRN PAIN LEVEL 6-10 Ondansetron HCl 4 mg 04/06/19 16:41 Zofran Injection IVPUSH Q6H PRN NAUSEA AND/OR VOMITING Oxycodone HCl 10 mg 04/06/19 16:41 04/07/19 10:51 Roxicodone - PO 04/07/19 16:40 10 mg Q4H PRN Administration PAIN LEVEL 6-10 ASSESSMENT AND PLAN: 23 year old male with history of constipation presents with over 1 week history of RLQ abdominal discomfort with associated constipation, followed by profuse watery diarrhea with 1 episode of bloody diarrhea, found to have acute appendicitis on CT imaging. Acute Appendicitis with contiguous Abscess/Phlegmon POD 1 s/p lap appendectomy converted to open appendectomy intra-operatively. Febrile, Hemodynamically Stable. WBC 23.6 post-op Diet advanced as per Surgery. Continue IV Abx (Zosyn) ID consulted for post-op fever in patient with acute appendicitis with phlegmon/ abscess. Analgesia as per Surgery DVT Px - as per Surgery.
--- NOTE | 2019-04-07 13:11 | PN ---
Physical Exam: SUBJECTIVE: Patient seen this morning and reports he has been having pain. Drain in place. OBJECTIVE: Vital Signs Temperature 98.5 F 04/07/19 05:58 Pulse Rate 64 04/07/19 05:58 Respiratory Rate 20 04/07/19 05:58 Blood Pressure 136/56 L 04/07/19 05:58 O2 Sat by Pulse Oximetry (%) 100 04/06/19 21:00 GENERAL: The patient is awake, alert, and fully oriented, in no acute distress. LUNGS: Breath sounds equal, clear to auscultation bilaterally, no wheezes, no crackles, no accessory muscle use. HEART: Regular rate and rhythm, S1, S2 without murmur, rub or gallop. ABDOMEN: JOHN drain in place, with dressing in place, serosanguinous fluid in drain EXTREMITIES: 2+ pulses, warm, well-perfused, no edema. SKIN: Warm, dry, normal turgor, no rashes or lesions noted CBCD WBC 23.6 K/mm3 (4.0-10.0) H 04/07/19 06:00 RBC 4.63 M/mm3 (4.00-5.60) 04/07/19 06:00 Hgb 13.1 GM/dL (11.7-16.9) 04/07/19 06:00 Hct 38.2 % (35.4-49) 04/07/19 06:00 MCV 82.5 fl (80-96) 04/07/19 06:00 MCHC 34.2 g/dl (32.0-35.9) 04/07/19 06:00 RDW 13.5 % (11.9-15.9) 04/07/19 06:00 Plt Count 271 K/MM3 (134-434) 04/07/19 06:00 MPV 9.0 fl (7.5-11.1) D 04/07/19 06:00 CMP Sodium 138 mmol/L (136-145) 04/07/19 06:00 Potassium 4.5 mmol/L (3.5-5.1) 04/07/19 06:00 Chloride 102 mmol/L (98-107) 04/07/19 06:00 Carbon Dioxide 26 mmol/L (21-32) 04/07/19 06:00 Anion Gap 10 MMOL/L (8-16) 04/07/19 06:00 BUN 10 mg/dL (7-18) 04/07/19 06:00 Creatinine 1.1 mg/dL (0.55-1.3) 04/07/19 06:00 Calcium 9.1 mg/dL (8.5-10.1) 04/07/19 06:00 Total Bilirubin 1.3 mg/dL (0.2-1) H 04/07/19 06:00 AST 22 U/L (15-37) 04/07/19 06:00 ALT 23 U/L (13-61) 04/07/19 06:00 Alkaline Phosphatase 91 U/L (45-117) 04/07/19 06:00 Total Protein 7.2 g/dl (6.4-8.2) 04/07/19 06:00 Albumin 3.2 g/dl (3.4-5.0) L 04/07/19 06:00 Active Medications Acetaminophen (Ofirmev Injection -) 1,000 mg IVPB Q6H PRN PRN Reason: PAIN OR FEVER Last Admin: 04/07/19 01:33 Dose: 1,000 mg Lactated Ringer's (Lactated Ringers Solution) 1,000 mls @ 125 mls/hr IV ASDIR BUSTER Last Admin: 04/06/19 17:53 Dose: 125 mls/hr Piperacillin Sod/Tazobactam (Sod 3.375 gm/ Dextrose) 50 mls @ 100 mls/hr IVPB Q8H-IV BUSTER; Protocol Morphine Sulfate (Morphine Sulfate) 4 mg IVPUSH Q4H PRN PRN Reason: PAIN LEVEL 6-10 Ondansetron HCl (Zofran Injection) 4 mg IVPUSH Q6H PRN PRN Reason: NAUSEA AND/OR VOMITING Oxycodone HCl (Roxicodone -) 10 mg PO Q4H PRN PRN Reason: PAIN LEVEL 6-10 Stop: 04/07/19 16:40 Last Admin: 04/07/19 10:51 Dose: 10 mg ASSESSMENT/PLAN: Patient is a 23 y/o male with no past medical history who is admitted for appendicitis. #POD 1 open exploration for suspected appendicitis - cannot r/o possible abscess - ABD/ Pelvis CT: prominent concentric wall thickening is seen involving the cecum to a lesser extent the lower half of the ascending colon and termnal ileum. normal appearing appendix - ABD xray: no pathology, no constipation - POD 1 for open exploration - on Zosyn - morphine 4 mg q4, oxy 10 q4, pain management as per surgery - f/u ID recs for questionable abscess and leukocytosis - tylenol prn for fevers #DVT ppx - heparin TID FEN - advance diet as tolerated Dispo: as suggested by surgery, monitor clinically Visit type - Emergency Visit Emergency Visit: No - New Patient This patient is new to me today: No - Critical Care Critical Care patient: No
[2019-04-07] MEDS: HEPARIN NA (PORCINE) 5,000 UNITS/ML 1ML VIAL SQ SCH ×2 (13:54→21:48)
[2019-04-07] MEDS ORDERED: PIPERACILLIN/TAZOBACTAM 3.375 GM VIAL IVPB ONE ×2 (14:37→18:26)
[2019-04-07] MEDS ORDERED: DEXTROSE 5%-WATER - 50 ML IVPB ONE ×2 (14:38→18:26)
[2019-04-07] MEDS: PIPERACILLIN/TAZOB 3.375 GM 3.375 GM in DEXTROSE 5%-WATER - 50 ML IVPB SCH ×2 (15:12→18:30)
[2019-04-07] MEDS: LACTATED RINGERS SOLUTION 1,000 ML IV SCH ×2 (15:13→19:21)
--- NOTE | 2019-04-07 15:46 | PN ---
Progress Note (short form) - Note Progress Note: ID CONSULT DICTATED POD #1 OPEN APPENDECTOMY ? APPENDICEAL ABSCESS ?INFLAMMATORY BOWEL DISEASE ?INFECTIOUS COLITIS OBTAIN BC EMPIRIC ZOSYN
[2019-04-07] MEDS: morphine SULFATE 4 MG/ML VIAL IVPUSH PRN ×2 (18:29→21:47)
--- NOTE | 2019-04-07 19:42 | CONS ---
DATE OF CONSULTATION: DATE OF DICTATION: 04/07/2019 The patient is a 23-year-old male evaluated for a possible appendiceal abscess. He was admitted to the hospital on April 05, 2019, with a 2-day history of worsening right lower quadrant pain and constipation. He was clinically felt to have acute appendicitis. CAT scan of the abdomen and pelvis showed several tubular-shaped fluid-filled structures with peripheral wall enhancement within the right lower quadrant, possibly on the basis of appendicitis with contiguous abscess or inflammatory bowel disease with possible abscesses. He was taken to the operating room, where a laparoscopic appendectomy converted to an open appendectomy was performed. According to the operative notes, no identifiable appendix was found. He did have extensive phlegmon. His course has now been complicated by recurrent fever, 102.4, and worsening leukocytosis, 23,000. PAST MEDICAL HISTORY: As above. No known allergies. Medications include morphine sulfate, Zosyn. SOCIAL HISTORY: He resides in the community. Nonsmoker, nondrinker. LABORATORY DATA: White count 23.6, hematocrit 38.2, platelets 271. Creatinine 1.1. Urine culture negative. PHYSICAL EXAMINATION: General: Patient is awake, ambulatory, in moderate distress secondary to right lower quadrant pain. Vital Signs: Temperature T-max 102.4. Blood pressure 140/79. Pulse 106, regular. Respirations 20 per minute. Eyes: Sclerae anicteric. Heart Sounds: S1, S2. Lungs: Clear. Abdomen: Slightly distended. Mild diffuse tenderness. Extremities: Negative for edema. Negative Homans sign. IMPRESSION: Postoperative pain. 1. Open appendectomy. 2. Fever, leukocytosis. 3. Possible appendiceal abscess. 4. Possible inflammatory bowel disease. Obtain blood cultures. Empiric antibiotic coverage, bowel herminia, with Zosyn. Surgical followup. Would consider GI consultation. Thank you for the kind referral. CALEB ORDOÑEZ M.D. [id number]
--- NOTE | 2019-04-08 00:33 | OP ---
DATE OF OPERATION: 04/06/2019 PREOPERATIVE DIAGNOSIS: Acute appendicitis. POSTOPERATIVE DIAGNOSIS: Acute appendicitis with phlegmon. PROCEDURE: Laparoscopic converted to attempted open appendectomy. SURGEON: Ahmet Napier MD VALVE REPAIRER: Juan Mcintosh PA-C ANESTHESIA: General. OPERATIVE FINDINGS: There was a large phlegmon in the right lower quadrant involving the terminal ileum and cecum and proximal ascending colon. There was no structure identifiable as the appendix. There was no abscess collection. There were multiple adhesions in the right lower quadrant and there was no evidence of inflammatory bowel disease involving the ileum and the rest of the findings were unremarkable. DESCRIPTION OF PROCEDURE: The patient was placed on the operating table in supine position. After the induction of general anesthesia, patient's abdomen was prepped with ChloraPrep and draped in sterile fashion. Pneumoperitoneum was established above the umbilicus using a Veress needle to an intraabdominal pressure of 15 mmHg. An additional 12-mm suprapubic port and left lower quadrant 5-mm port were placed, and then, laparoscopy carried out. The previously-noted findings were observed in the right lower quadrant. Once it was ascertained that structures could not be clearly identified or mobilized using laparoscopy, all ports were removed, and the pneumoperitoneum was evacuated. A needle, instrument, and sponge count was done at this point and confirmed as correct, and then, the procedure was converted to an open appendectomy. A transverse incision was mapped out on the skin over McBurney's point, and an incision was made with a scalpel and taken down through skin and subcutaneous tissue. The external oblique fascia was divided in the direction of its fibers, and then, muscle-splitting incision was carried out until the peritoneum was identified. The peritoneum was incised and opened transversely, and again, the previously-noted findings that were present on laparoscopy were observed. Using blunt dissection , the cecum was mobilized and then the terminal ileum identified and traced proximally. The ascending colon was identified as well, and no identifiable structure consistent with the appendix was identified. Again, there was no evidence of a fluid collection or abscess cavity, and the only findings were marked induration and changes consistent with a phlegmon. At this point, a 10-mm Hollis-Dangelo drain was placed through a separate stab wound in the lower abdomen and secured to the skin with 2-0 silk suture. The drain was placed in the pelvic cavity below the base of the cecum. Copious irrigation was carried out, and then, the incision was closed in layers with continuous 2-0 Vicryl for the peritoneum, interrupted 2-0 Vicryl for the skin internal oblique muscle, and continuous 2-0 Vicryl to close the external oblique fascia. Maik fascia was reapproximated with interrupted 2-0 Vicryl, the deep dermis with interrupted 3-0 Vicryl, and the skin edges with 4-0 Monocryl in a subcuticular fashion. The drain was connected to bulb self-suction, and the port site incisions were closed with 4-0 Monocryl as well and dressed with dry sterile dressings. Again needle; instrument and sponge count were verified as correct. A BIOPATCH was placed around the exit site of the drain, and the patient was aroused from general anesthesia and transferred to the postanesthesia care unit in stable condition, awake, and alert. ESTIMATED BLOOD LOSS: 20 mL. REPLACEMENTS: Crystalloid. DRAINS: One 10-mm Hollis-Dangelo in the right lower quadrant. SPECIMENS: none I, Ahmet Napier MD, was physically present in the operating room from the time the patient was placed on the operating table until he was transferred to the postanesthesia care unit in my accompaniment. MD DAVIDA Beck/[id number] MTDD
[2019-04-08] MEDS ORDERED: PIPERACILLIN/TAZOBACTAM 3.375 GM VIAL IVPB ONE ×3 (01:26→16:43)
[2019-04-08] MEDS ORDERED: DEXTROSE 5%-WATER - 50 ML IVPB ONE ×3 (01:26→16:43)
[2019-04-08] MEDS: morphine SULFATE 4 MG/ML VIAL IVPUSH PRN ×6 (01:28→22:42)
[2019-04-08] MEDS: PIPERACILLIN/TAZOB 3.375 GM 3.375 GM in DEXTROSE 5%-WATER - 50 ML IVPB SCH ×4 (01:29→17:00)
[2019-04-08] MEDS ORDERED: ACETAMINOPHEN 1000 MG/100 ML VIAL (NON FORMULARY) IVPB ONE (01:40)
[2019-04-08] MEDS: HEPARIN NA (PORCINE) 5,000 UNITS/ML 1ML VIAL SQ SCH ×3 (06:34→21:34)
[2019-04-08 07:55] LABS: HEMATOCRIT 36.8 % (35.4-49); HEMOGLOBIN 12.5 GM/dL (11.7-16.9); MCH 28.1 pg (25.7-33.7); MCHC 33.9 g/dl (32.0-35.9); MEAN CELL VOLUME 82.8 fl (80-96); MEAN PLT VOLUME 8.6 fl (7.5-11.1); RBC 4.45 M/mm3 (4.00-5.60); RDW 13.7 % (11.9-15.9); WHITE BLOOD COUNT 16.5 K/mm3 (4.0-10.0)
[2019-04-08 07:58] LABS: ALBUMIN 2.7 g/dl (3.4-5.0); BILIRUBIN,TOTAL 0.8 mg/dL (0.2-1); CALCIUM 8.4 mg/dL (8.5-10.1); POTASSIUM 4.3 mmol/L (3.5-5.1); TOT PROT 6.4 g/dl (6.4-8.2)
[2019-04-08] MEDS: LACTATED RINGERS SOLUTION 1,000 ML IV SCH ×3 (09:24→18:23)
--- NOTE | 2019-04-08 10:17 | PN ---
Progress Note (short form) - Note Progress Note: Attending Surgeon POD #2 c/o pain; tolerating clear liquid diet and ambulating; passing flatus VSS T max 103
--- NOTE | 2019-04-08 10:42 | PN ---
Progress Note (short form) - Note Progress Note: Attending Surgeon POD #2 c/o pain; tolerating clear liquid diet and ambulating; passing flatus VSS T max 103.1 abdo-soft and not distended; incisions c/d/i; JOHN serosanguinous; active bowel sounds calves-soft; no calf tenderness JOHN 80 cc WBC down to 16.3 IMP: improving PLAN: OOB/IVF/full liquid diet/IVABs per ID/follow temperature and WBC; continue JOHN drain. Patient will be followed by Dr. Alex Gamez in my absence today through 04/09/19 ; I will return to see the patient 04/10/19. Ahmet Napier MD FACS
[2019-04-08 12:19] LABS: PLATELET COUNT 215 K/MM3 (134-434)
--- NOTE | 2019-04-08 12:28 | PN ---
Physical Exam: SUBJECTIVE: Patient seen this morning and reports he is still in pain. patient had a fever overnight, leukocytes increasing. Drain put out 80 mL overnight. OBJECTIVE: Vital Signs Temperature 99.6 F 04/08/19 09:00 Pulse Rate 85 04/08/19 09:00 Respiratory Rate 18 04/08/19 09:00 Blood Pressure 133/69 04/08/19 09:00 O2 Sat by Pulse Oximetry (%) 98 04/08/19 09:00 GENERAL: The patient is awake, alert, and fully oriented, in no acute distress. LUNGS: Breath sounds equal, clear to auscultation bilaterally, no wheezes, no crackles, no accessory muscle use. HEART: Regular rate and rhythm, S1, S2 without murmur, rub or gallop. ABDOMEN: JOHN drain in place, with dressing in place, serosanguinous fluid in drain EXTREMITIES: 2+ pulses, warm, well-perfused, no edema. SKIN: Warm, dry, normal turgor, no rashes or lesions noted CBC, BMP 04/08/19 06:25 04/08/19 06:25 Active Medications Heparin Sodium (Porcine) (Heparin -) 5,000 unit SQ TID BUSTER Last Admin: 04/08/19 06:34 Dose: 5,000 unit Lactated Ringer's (Lactated Ringers Solution) 1,000 mls @ 125 mls/hr IV ASDIR BUSTER Last Admin: 04/08/19 09:24 Dose: 125 mls/hr Piperacillin Sod/Tazobactam (Sod 3.375 gm/ Dextrose) 50 mls @ 100 mls/hr IVPB Q8H-IV BUSTER; Protocol Last Admin: 04/08/19 09:24 Dose: 100 mls/hr Morphine Sulfate (Morphine Sulfate) 4 mg IVPUSH Q4H PRN PRN Reason: PAIN LEVEL 6-10 Last Admin: 04/08/19 10:52 Dose: 4 mg Ondansetron HCl (Zofran Injection) 4 mg IVPUSH Q6H PRN PRN Reason: NAUSEA AND/OR VOMITING ASSESSMENT/PLAN: Patient is a 23 y/o male with no past medical history who is admitted for appendicitis. #POD 2 open exploration for suspected appendicitis - cannot r/o possible abscess - ABD/ Pelvis CT: prominent concentric wall thickening is seen involving the cecum to a lesser extent the lower half of the ascending colon and termnal ileum. normal appearing appendix - ABD xray: no pathology, no constipation - POD 2 for open exploration - on Zosyn ( day 2), f/u BC - morphine 4 mg q4, oxy 10 q4, pain management as per surgery - f/u ID recs for questionable abscess and leukocytosis - tylenol prn for fevers - leukocytois continuing to trend up, f/u repeat ABD CT #DVT ppx - heparin TID FEN - advance diet as tolerated, as per surgery clear liquid Dispo: monitor clinically Visit type - Emergency Visit Emergency Visit: No - New Patient This patient is new to me today: No - Critical Care Critical Care patient: No
--- NOTE | 2019-04-08 15:16 | PN ---
Progress Note, Physician History of Present Illness: STILL WITH C/O ABDOMINAL PAIN NO N/N FEBRILE OVERNIGHT 103 WBC IMPROVED BC PENDING - Current Medication List Current Medications: Active Medications Heparin Sodium (Porcine) (Heparin -) 5,000 unit SQ TID BUSTER Last Admin: 04/08/19 13:11 Dose: 5,000 unit Lactated Ringer's (Lactated Ringers Solution) 1,000 mls @ 125 mls/hr IV ASDIR BUSTER Last Admin: 04/08/19 09:24 Dose: 125 mls/hr Piperacillin Sod/Tazobactam (Sod 3.375 gm/ Dextrose) 50 mls @ 100 mls/hr IVPB Q8H-IV BUSTER; Protocol Last Admin: 04/08/19 09:24 Dose: 100 mls/hr Morphine Sulfate (Morphine Sulfate) 4 mg IVPUSH Q4H PRN PRN Reason: PAIN LEVEL 6-10 Last Admin: 04/08/19 14:27 Dose: 4 mg Ondansetron HCl (Zofran Injection) 4 mg IVPUSH Q6H PRN PRN Reason: NAUSEA AND/OR VOMITING - Objective Vital Signs: Vital Signs Temperature 98.5 F 04/08/19 13:48 Pulse Rate 91 H 04/08/19 13:48 Respiratory Rate 20 04/08/19 13:48 Blood Pressure 142/73 04/08/19 13:48 O2 Sat by Pulse Oximetry (%) 98 04/08/19 09:00 Constitutional: Yes: No Distress Eyes: Yes: Conjunctiva Clear Cardiovascular: Yes: Regular Rate and Rhythm, S1, S2 Respiratory: Yes: CTA Bilaterally Gastrointestinal: Yes: Normal Bowel Sounds, Soft, Other (+ MILD DIFFUSE TENDERNESS) Edema: No Labs: CBC, BMP 04/08/19 06:25 04/08/19 06:25 INR, PTT INR 1.35 (0.83-1.09) H 04/06/19 08:38 Assessment/Plan POD #2 OPEN APENDECTOMY FEVER/ LEUKOCYTOSIS AWAIT C/S CONTINUE EMPIRIC ZOSYN
--- NOTE | 2019-04-08 15:57 | PN ---
Teaching Attending Note Name of Resident: Renetta Hartley ATTENDING PHYSICIAN STATEMENT I saw and evaluated the patient. I reviewed the resident's note and discussed the case with the resident. I agree with the resident's findings and plan as documented. SUBJECTIVE: RLQ abdominal pain, mildly improved. No nausea/vomiting. Passed BM. Fever overnight. No cough/SOB/CP/Sputum. OBJECTIVE: Febrile T 103.1, Hemodynamically Stable. Last Vital Signs Temp Pulse Resp BP Pulse Ox 98.5 F 91 H 20 142/73 98 04/08/19 13:48 04/08/19 13:48 04/08/19 13:48 04/08/19 13:48 04/08/19 09:00 Heart - S1, S2, RRR Lungs - Clear to auscultation Abdomen - Soft, RLQ tenderness. Surgical site dressed. JOHN drain in-situ with serosanguinous fluid. Bowel Sounds normal. Extremities - No edema, no calf tenderness Laboratory Results - last 24 hr 04/05/19 04/08/19 04/08/19 16:00 06:25 06:25 WBC 16.5 H RBC 4.45 Hgb 12.5 Hct 36.8 MCV 82.8 MCH 28.1 MCHC 33.9 RDW 13.7 Plt Count 215 D MPV 8.6 Sodium 136 Potassium 4.3 Chloride 101 Carbon Dioxide 29 Anion Gap 7 L BUN 6 L Creatinine 1.0 Est GFR (CKD-EPI)AfAm 122.41 Est GFR (CKD-EPI)NonAf 105.62 Random Glucose 97 Calcium 8.4 L Total Bilirubin 0.8 AST 25 ALT 22 Alkaline Phosphatase 88 Total Protein 6.4 Albumin 2.7 L C. trachomatis (SAHIL) Negative N.gonorrhoeae DNA (SAHIL) Negative T. vaginalis (SAHIL) Negative Current Medications Generic Name Dose Route Start Last Admin Trade Name Freq PRN Reason Stop Dose Admin Heparin Sodium (Porcine) 5,000 unit 04/07/19 14:00 04/08/19 13:11 Heparin - SQ 5,000 unit TID BUSTER Administration Lactated Ringer's 1,000 mls @ 125 mls/hr 04/06/19 16:33 04/08/19 09:24 Lactated Ringers Solution IV 125 mls/hr ASDIR BUSTER Administration Piperacillin Sod/Tazobactam 50 mls @ 100 mls/hr 04/07/19 14:00 04/08/19 09:24 Sod 3.375 gm/ Dextrose IVPB 100 mls/hr Q8H-IV BUSTER Administration Protocol Morphine Sulfate 4 mg 04/07/19 09:30 04/08/19 14:27 Morphine Sulfate IVPUSH 4 mg Q4H PRN Administration PAIN LEVEL 6-10 Ondansetron HCl 4 mg 04/06/19 16:41 Zofran Injection IVPUSH Q6H PRN NAUSEA AND/OR VOMITING ASSESSMENT AND PLAN: 23 year old male with history of constipation presents with over 1 week history of RLQ abdominal discomfort with associated constipation, followed by profuse watery diarrhea with 1 episode of bloody diarrhea, found to have acute appendicitis on CT imaging. Acute Appendicitis with contiguous Abscess/Phlegmon POD 2 s/p lap appendectomy converted to open appendectomy intra-operatively. Febrile up to Temp 103.1, Hemodynamically Stable. WBC 16.5 CT A/P requested given ongoing high grade fevers. Diet advanced as per Surgery. Continue IV Abx (Zosyn) - ID following Analgesia as per Surgery DVT Px - Heparin as per Surgery.
[2019-04-09] MEDS ORDERED: PIPERACILLIN/TAZOBACTAM 3.375 GM VIAL IVPB ONE ×3 (01:37→17:11)
[2019-04-09] MEDS ORDERED: DEXTROSE 5%-WATER - 50 ML IVPB ONE ×3 (01:38→17:11)
[2019-04-09] MEDS: PIPERACILLIN/TAZOB 3.375 GM 3.375 GM in DEXTROSE 5%-WATER - 50 ML IVPB SCH ×3 (01:43→18:34)
[2019-04-09] MEDS: morphine SULFATE 4 MG/ML VIAL IVPUSH PRN ×4 (02:45→21:57)
[2019-04-09] MEDS: HEPARIN NA (PORCINE) 5,000 UNITS/ML 1ML VIAL SQ SCH ×3 (06:09→21:10)
[2019-04-09 07:29] LABS: ALBUMIN 2.5 g/dl (3.4-5.0); BILIRUBIN,TOTAL 0.6 mg/dL (0.2-1); BLOOD UREA NITROGEN 7.5 mg/dL (7-18); CALCIUM 8.5 mg/dL (8.5-10.1); CREATININE 0.8 mg/dL (0.55-1.3); POTASSIUM 3.9 mmol/L (3.5-5.1)
[2019-04-09 07:55] LABS: HEMATOCRIT 33.3 % (35.4-49); HEMOGLOBIN 11.5 GM/dL (11.7-16.9); MCH 28.1 pg (25.7-33.7); MCHC 34.5 g/dl (32.0-35.9); MEAN CELL VOLUME 81.6 fl (80-96); MEAN PLT VOLUME 8.2 fl (7.5-11.1); RBC 4.07 M/mm3 (4.00-5.60); RDW 13.4 % (11.9-15.9); WHITE BLOOD COUNT 11.5 K/mm3 (4.0-10.0)
--- NOTE | 2019-04-09 11:32 | PN ---
Physical Exam: SUBJECTIVE: Patient seen and examined at bedside. No acute events overnight. Pt feels better, but still with mild abd tenderness. Denies f/c, cp, n/v, sob. Tolerating clear liquids. JOHN drain found to be disconnected from tubing. Surg made aware this AM. OBJECTIVE: Vital Signs Temperature 99.5 F 04/09/19 06:00 Pulse Rate 82 04/09/19 06:00 Respiratory Rate 18 04/09/19 09:00 Blood Pressure 116/67 04/09/19 06:00 O2 Sat by Pulse Oximetry (%) 99 04/09/19 09:00 GENERAL: The patient is awake, alert, and fully oriented, in no acute distress. LUNGS: Breath sounds equal, clear to auscultation bilaterally, no wheezes, no crackles, no accessory muscle use. HEART: Regular rate and rhythm, S1, S2 without murmur, rub or gallop. ABDOMEN: JOHN drain in place, with dressing in place, serosanguinous fluid in drain EXTREMITIES: 2+ pulses, warm, well-perfused, no edema. SKIN: Warm, dry, normal turgor, no rashes or lesions noted CBC, BMP 04/09/19 06:20 04/09/19 06:20 Active Medications Heparin Sodium (Porcine) (Heparin -) 5,000 unit SQ TID BUSTER Last Admin: 04/09/19 06:09 Dose: 5,000 unit Piperacillin Sod/Tazobactam (Sod 3.375 gm/ Dextrose) 50 mls @ 100 mls/hr IVPB Q8H-IV BUSTER; Protocol Last Admin: 04/09/19 09:59 Dose: 100 mls/hr Lactated Ringer's (Lactated Ringers Solution) 1,000 mls @ 50 mls/hr IV ASDIR BUSTER Morphine Sulfate (Morphine Sulfate) 4 mg IVPUSH Q4H PRN PRN Reason: PAIN LEVEL 6-10 Last Admin: 04/09/19 06:47 Dose: 4 mg Ondansetron HCl (Zofran Injection) 4 mg IVPUSH Q6H PRN PRN Reason: NAUSEA AND/OR VOMITING IMAGING: * CTAP w/ contrast(04/05/19): Findings are seen with RLQ which could be on basis of appendicitis w/ contiguous tubular shaped abscesses vs. 2/2 inflammatory bowel disease possibly w/ associated abscesses. * CTAP w/o contrast (04/05/19): Prominent concentric wall thickening seen involving cecum and to a lesser extent the lower half of the ascending colon and terminal ileum. Normal-appearing appendix is not def. visualized/opacified. Several small rim-enhancing fluid structures identified on the previous CT study adjacent to tip of cecum demonstrate no opacification on current study therefore suggestive of abscesses. CT findings suggestive of acute appendicitis and less likely on basis of inflammatory/infectious enterocolitis. * Abd xray (04/06/19): Retained contrast in colon w/ drain projected over pelvis, metallic density in RUQ and tubing projected by splenix flexure, L flank, and pelvis. * CTAP (04/08/19): Within RLQ and overlying abd soft tissues note is made of a small amount of extraluminal air accumulation which could be postsurgical in nature. Several tubular shaped mildly thick-walled fluid structures are seen within R upper pelvis which may represent unopacified small bowel loops and/or small fluid collections. Development of trace b/l pleural effusions noted with associated mild basilar atelectasis. ASSESSMENT/PLAN: Patient is a 23 y/o male with no past medical history who is admitted for appendicitis. #S/p Open exploration for suspected appendicitis, POD #3 - ABD/ Pelvis CT: prominent concentric wall thickening is seen involving the cecum to a lesser extent the lower half of the ascending colon and termnal ileum. normal appearing appendix - ABD xray: no pathology, no constipation - POD 3 for open exploration - on Zosyn 3.375 gm Q8H (Day 3), BCx neg x24h, UCx neg; repeat U/A sent due to foul-smelling urine this AM - morphine 4 mg q4, oxy 10 q4, pain management as per surgery - tylenol prn for fevers - Leukocytosis improving; 16.5 --> 11.5 today. - F/u surg recs #DVT ppx - heparin TID FEN - decreased LR to 50cc/hr in light of CT findings of trace b/l pleural effusions - recheck lytes in AM - advance diet as tolerated, as per surgery clear liquid Dispo: monitor clinically Visit type - Emergency Visit Emergency Visit: Yes ED Registration Date: 04/05/19 Care time: The patient presented to the Emergency Department on the above date and was hospitalized for further evaluation of their emergent condition. - New Patient This patient is new to me today: Yes Date on this admission: 04/09/19 - Critical Care Critical Care patient: No
[2019-04-09] MEDS: LACTATED RINGERS SOLUTION 1,000 ML IV SCH (12:38)
--- NOTE | 2019-04-09 13:15 | PN ---
Teaching Attending Note Name of Resident: Sana Rincon ATTENDING PHYSICIAN STATEMENT I saw and evaluated the patient. I reviewed the resident's note and discussed the case with the resident. I agree with the resident's findings and plan as documented. SUBJECTIVE: RLQ abdominal pain improving, tolerating clears. No nausea/ vomiting. Passed BM. Fever improving. No cough/SOB/CP/Sputum. OBJECTIVE: Febrile Tmax 100.3, Hemodynamically Stable. Last Vital Signs Temp Pulse Resp BP Pulse Ox 99.5 F 82 18 116/67 99 04/09/19 06:00 04/09/19 06:00 04/09/19 09:00 04/09/19 06:00 04/09/19 09:00 Heart - S1, S2, RRR Lungs - Clear to auscultation Abdomen - Soft, RLQ tenderness. Surgical site dressed. JOHN drain in-situ/clamped , bulb disconnected. Bowel Sounds normal. Extremities - No edema, no calf tenderness Laboratory Results - last 24 hr 04/09/19 04/09/19 06:20 06:20 WBC 11.5 H RBC 4.07 Hgb 11.5 L Hct 33.3 L MCV 81.6 MCH 28.1 MCHC 34.5 RDW 13.4 MPV 8.2 Sodium 136 Potassium 3.9 Chloride 100 Carbon Dioxide 30 Anion Gap 6 L BUN 7.5 Creatinine 0.8 Est GFR (CKD-EPI)AfAm 145.93 Est GFR (CKD-EPI)NonAf 125.91 Random Glucose 101 Calcium 8.5 Total Bilirubin 0.6 AST 22 ALT 20 Alkaline Phosphatase 94 Total Protein 6.0 L Albumin 2.5 L Current Medications Generic Name Dose Route Start Last Admin Trade Name Freq PRN Reason Stop Dose Admin Heparin Sodium (Porcine) 5,000 unit 04/07/19 14:00 04/09/19 06:09 Heparin - SQ 5,000 unit TID BUSTER Administration Piperacillin Sod/Tazobactam 50 mls @ 100 mls/hr 04/07/19 14:00 04/09/19 09:59 Sod 3.375 gm/ Dextrose IVPB 100 mls/hr Q8H-IV BUSTER Administration Protocol Lactated Ringer's 1,000 mls @ 50 mls/hr 04/09/19 09:45 04/09/19 12:38 Lactated Ringers Solution IV 50 mls/hr ASDIR BUSTER Administration Morphine Sulfate 4 mg 04/07/19 09:30 04/09/19 06:47 Morphine Sulfate IVPUSH 4 mg Q4H PRN Administration PAIN LEVEL 6-10 Ondansetron HCl 4 mg 04/06/19 16:41 Zofran Injection IVPUSH Q6H PRN NAUSEA AND/OR VOMITING ASSESSMENT AND PLAN: 23 year old male with history of constipation presents with over 1 week history of RLQ abdominal discomfort with associated constipation, followed by profuse watery diarrhea with 1 episode of bloody diarrhea, found to have acute appendicitis on CT imaging. Acute Appendicitis with contiguous Abscess/Phlegmon POD 3 s/p lap appendectomy converted to open appendectomy intra-operatively. No surgical Cx on record. Febrile up to Temp 103.1 yesterday, now T 100.3, Hemodynamically Stable. WBC 11.5, improving CT A/P requested given ongoing high grade fevers. Tolerating clear liquids - Diet advancement as per Surgery. Continue IV Abx (Zosyn) - ID following Analgesia as per Surgery DVT Px - Heparin as per Surgery.
[2019-04-09 14:06] LABS: PLATELET COUNT 346 K/MM3 (134-434)
--- NOTE | 2019-04-09 14:47 | PN ---
Progress Note, Physician Chief Complaint: feeling better, reports flatus and BM History of Present Illness: s/p ex lap and drainage of periappendiceal collection - Current Medication List Current Medications: Active Medications Heparin Sodium (Porcine) (Heparin -) 5,000 unit SQ TID BUSTER Last Admin: 04/09/19 14:29 Dose: Not Given Piperacillin Sod/Tazobactam (Sod 3.375 gm/ Dextrose) 50 mls @ 100 mls/hr IVPB Q8H-IV BUSTER; Protocol Last Admin: 04/09/19 09:59 Dose: 100 mls/hr Lactated Ringer's (Lactated Ringers Solution) 1,000 mls @ 50 mls/hr IV ASDIR BUSTER Last Admin: 04/09/19 12:38 Dose: 50 mls/hr Morphine Sulfate (Morphine Sulfate) 4 mg IVPUSH Q4H PRN PRN Reason: PAIN LEVEL 6-10 Last Admin: 04/09/19 06:47 Dose: 4 mg Ondansetron HCl (Zofran Injection) 4 mg IVPUSH Q6H PRN PRN Reason: NAUSEA AND/OR VOMITING - Objective Vital Signs: Vital Signs Temperature 99.5 F 04/09/19 06:00 Pulse Rate 82 04/09/19 06:00 Respiratory Rate 18 04/09/19 09:00 Blood Pressure 116/67 04/09/19 06:00 O2 Sat by Pulse Oximetry (%) 99 04/09/19 09:00 Labs: CBC, BMP 04/09/19 06:20 04/09/19 06:20 INR, PTT INR 1.35 (0.83-1.09) H 04/06/19 08:38 Problem List - Problems (1) Appendicitis with abscess Code(s): K35.33 - ACUTE APPENDICITIS WITH PERF AND LOC PERITONITIS, WITH ABSCS Assessment/Plan Doing well JOHN bulb exchanged continue current management
[2019-04-09 15:15] LABS: PH,URINE 8.5 (5.0-8.0); URINE APPEARANCE CLEAR; URINE BILIRUBIN NEGATIVE (NEGATIVE); URINE COLOR YELLOW; URINE GLUCOSE (UA) NEGATIVE (NEGATIVE); URINE KETONE NEGATIVE (NEGATIVE); URINE LEUK ESTERASE NEGATIVE (NEGATIVE); URINE NITRITE NEGATIVE (NEGATIVE); URINE PROTEIN NEGATIVE (NEGATIVE)
[2019-04-10] MEDS ORDERED: DEXTROSE 5%-WATER - 50 ML IVPB ONE ×4 (02:10→20:40)
[2019-04-10] MEDS ORDERED: PIPERACILLIN/TAZOBACTAM 3.375 GM VIAL IVPB ONE ×4 (02:10→20:40)
[2019-04-10] MEDS: morphine SULFATE 4 MG/ML VIAL IVPUSH PRN ×2 (02:14→06:10)
[2019-04-10] MEDS: PIPERACILLIN/TAZOB 3.375 GM 3.375 GM in DEXTROSE 5%-WATER - 50 ML IVPB SCH ×3 (02:18→17:35)
[2019-04-10] MEDS: HEPARIN NA (PORCINE) 5,000 UNITS/ML 1ML VIAL SQ SCH ×3 (06:10→21:16)
[2019-04-10 07:20] LABS: HEMATOCRIT 35.9 % (35.4-49); HEMOGLOBIN 12.3 GM/dL (11.7-16.9); MCH 28.2 pg (25.7-33.7); MCHC 34.3 g/dl (32.0-35.9); MEAN CELL VOLUME 82.2 fl (80-96); MEAN PLT VOLUME 8.3 fl (7.5-11.1); RBC 4.37 M/mm3 (4.00-5.60); RDW 13.6 % (11.9-15.9); WHITE BLOOD COUNT 9.3 K/mm3 (4.0-10.0)
[2019-04-10] MEDS: LACTATED RINGERS SOLUTION 1,000 ML IV SCH (09:43)
[2019-04-10] MEDS: ACETAMINOPHEN 325 MG TABLET (FP) PO PRN ×3 (11:43→22:00)
--- NOTE | 2019-04-10 13:24 | PN ---
Progress Note (short form) - Note Progress Note: Attending Surgeon POD #4 No c/o; tolerating a diet; has been OOB VSS AF abdo-soft; port sites and RLQ incision c/d/i; JOHN serosanguinous and w/minimal output WBC-nl all cultures to date negative. IMP: improving PLAN: Continue present tx.; extensive d/w the patient and his Monika. Ahmet Hwang> Quyen COLLADO FACS
[2019-04-10 13:40] LABS: PLATELET COUNT 364 K/MM3 (134-434)
--- NOTE | 2019-04-10 14:09 | PN ---
Progress Note (short form) - Note Progress Note: SUBJECTIVE: RLQ abdominal pain tolerated but still requiring IV Morphine. Tolerating clear liquid diet. No nausea/vomiting. Passed BM. Fever appears to have resolved. No cough/SOB/CP/Sputum. OBJECTIVE: Afebrile, Hemodynamically Stable. Last Vital Signs Temp Pulse Resp BP Pulse Ox 97.9 F 88 18 105/58 L 99 04/10/19 10:00 04/10/19 10:00 04/10/19 10:00 04/10/19 10:04/09/19 21:00 Heart - S1, S2, RRR Lungs - Clear to auscultation Abdomen - Soft, RLQ tenderness. Surgical site dressed. JOHN drain in-situ bulb re- connected, minimal drainage. Bowel Sounds normal. Extremities - No edema, no calf tenderness Laboratory Results - last 24 hr 04/09/19 04/09/19 04/10/19 06:20 12:50 06:30 WBC 9.3 RBC 4.37 Hgb 12.3 Hct 35.9 MCV 82.2 MCH 28.2 MCHC 34.3 RDW 13.6 Plt Count 346 D 364 MPV 8.3 Urine Color Yellow Urine Appearance Clear Urine pH 8.5 H D Ur Specific [place] 1.007 L Urine Protein Negative Urine Glucose (UA) Negative Urine Ketones Negative Urine Blood Negative Urine Nitrite Negative Urine Bilirubin Negative Urine Urobilinogen 1.0 Ur Leukocyte Esterase Negative Current Medications Generic Name Dose Route Start Last Admin Trade Name Freq PRN Reason Stop Dose Admin Acetaminophen 325 mg 04/10/19 10:19 04/10/19 11:43 Tylenol - PO 325 mg Q6H PRN Administration PAIN 1-5 Heparin Sodium (Porcine) 5,000 unit 04/07/19 14:00 04/10/19 06:10 Heparin - SQ 5,000 unit TID BUSTER Administration Piperacillin Sod/Tazobactam 50 mls @ 100 mls/hr 04/07/19 14:00 04/10/19 09:43 Sod 3.375 gm/ Dextrose IVPB 100 mls/hr Q8H-IV BUSTER Administration Protocol Ondansetron HCl 4 mg 04/06/19 16:41 Zofran Injection IVPUSH Q6H PRN NAUSEA AND/OR VOMITING Oxycodone HCl 5 mg 04/10/19 10:19 Roxicodone - PO Q6H PRN PAIN 1-5 ASSESSMENT AND PLAN: 23 year old male with history of constipation presents with over 1 week history of RLQ abdominal discomfort with associated constipation, followed by profuse watery diarrhea with 1 episode of bloody diarrhea, found to have acute appendicitis on CT imaging. Acute Appendicitis with contiguous Abscess/Phlegmon POD 4 s/p lap appendectomy converted to open appendectomy intra-operatively. No surgical Cx on record. Fever appears to have resolved, Hemodynamically Stable. Leukocytosis resolved. Tolerating clear liquids - Diet advanced Continue IV Abx (Zosyn) - ID following JOHN drain still insitu - further management as per Sx. IV Morphine changed to oxycodone. No acute medical issues. DVT Px - Heparin as per Surgery. Visit type - Emergency Visit Emergency Visit: Yes ED Registration Date: 04/05/19 Care time: The patient presented to the Emergency Department on the above date and was hospitalized for further evaluation of their emergent condition. - New Patient This patient is new to me today: No - Critical Care Critical Care patient: No - Discharge Referral Referred to [facility] No
[2019-04-11] MEDS: PIPERACILLIN/TAZOB 3.375 GM 3.375 GM in DEXTROSE 5%-WATER - 50 ML IVPB SCH ×3 (01:16→17:09)
[2019-04-11] MEDS: ACETAMINOPHEN 325 MG TABLET (FP) PO PRN ×2 (05:12→17:10)
[2019-04-11] MEDS: HEPARIN NA (PORCINE) 5,000 UNITS/ML 1ML VIAL SQ SCH ×3 (05:13→21:23)
[2019-04-11] MEDS: oxyCODONE HCL 5 MG TABLET PO PRN ×2 (05:13→17:10)
--- NOTE | 2019-04-11 07:22 | PN ---
Progress Note (short form) - Note Progress Note: Surgery POD #5 POD 4 s/p lap appendectomy converted to open. Patient seen and examined at bedside with no complaints, resting comfortably. Fevers have resolved, Leukocytosis resolved. He is tolerating a regular diet and moving his bowels. He denies any CP, SOB, N/V, Fever or chills. Vital Signs Temp 97.7 F 04/11/19 05:52 Pulse 59 L 04/11/19 05:52 Resp 18 04/11/19 05:52 BP 134/67 04/11/19 05:52 Pulse Ox 99 04/10/19 21:00 Intake & Output 04/10/1904/10/04/11/19 11:59 23:59 11:59 Intake Total 700 80 Output Total 300 6 Balance -300 694 80 Intake: IV 200 Lactated Ringers Solution 200 1,000 ml @ 50 mls/hr IV ASDIR BUSTER Rx#:[id number] IVPB 200 50 Oral 300 30 Output: Drainage 6 Right Lower Abdomen 6 Urine 300 Void 300 Other: Voiding Method Urinal Urinal Toilet # Unmeasured Voids Void 1 1 Bowel Movement No Yes CBC, BMP 06/09/19 06:30 // 06:20 PE: A&Ox3, NAD unlabored resp on RA ABD: SOft, ND, with mild TTP at port and incision sites <RLQ, Drain with SS d/c secure in RLQ, Dressings c/d/i with scant d/c, surrounding tissue intact with no tracking erythema or edema. B/L LE compartments soft, supple and non-tender with +2 DP pulses. Problem List - Problems (1) Appendicitis with abscess Assessment/Plan: POD#5 doing well, continues to improve. 1) OOB as tolerated 2) DVT and GI prophylaxis 3) encourage daily IS 4) Will d/c drain in AM 5) D/c planning for home tomorrow Code(s): K35.33 - ACUTE APPENDICITIS WITH PERF AND LOC PERITONITIS, WITH ABSCS
[2019-04-11] MEDS ORDERED: DEXTROSE 5%-WATER - 50 ML IVPB ONE ×3 (08:25→21:06)
[2019-04-11] MEDS ORDERED: PIPERACILLIN/TAZOBACTAM 3.375 GM VIAL IVPB ONE ×3 (08:25→21:05)
--- NOTE | 2019-04-11 11:10 | PN ---
Physical Exam: SUBJECTIVE: Patient seen and examined at bedside. No acute events overnight. Pt still has mild lower abd tenderness. OBJECTIVE: Vital Signs Temperature 97.9 F 04/11/19 09:41 Pulse Rate 55 L 04/11/19 09:41 Respiratory Rate 18 04/11/19 09:41 Blood Pressure 120/54 L 04/11/19 09:41 O2 Sat by Pulse Oximetry (%) 99 04/10/19 21:00 GENERAL: The patient is awake, alert, and fully oriented, in no acute distress. LUNGS: Breath sounds equal, clear to auscultation bilaterally, no wheezes, no crackles, no accessory muscle use. HEART: Regular rate and rhythm, S1, S2 without murmur, rub or gallop. ABDOMEN: JOHN drain in place, with dressing in place, serosanguinous fluid in drain EXTREMITIES: 2+ pulses, warm, well-perfused, no edema. SKIN: Warm, dry, normal turgor, no rashes or lesions noted Laboratory Results - last 24 hr 04/10/19 06:30 Plt Count 364 Active Medications Acetaminophen (Tylenol -) 325 mg PO Q6H PRN PRN Reason: PAIN 1-5 Last Admin: 04/11/19 05:12 Dose: 325 mg Heparin Sodium (Porcine) (Heparin -) 5,000 unit SQ TID BUSTER Last Admin: 04/11/19 05:13 Dose: 5,000 unit Piperacillin Sod/Tazobactam (Sod 3.375 gm/ Dextrose) 50 mls @ 100 mls/hr IVPB Q8H-IV BUSTER; Protocol Last Admin: 04/11/19 10:12 Dose: 100 mls/hr Ondansetron HCl (Zofran Injection) 4 mg IVPUSH Q6H PRN PRN Reason: NAUSEA AND/OR VOMITING Oxycodone HCl (Roxicodone -) 5 mg PO Q6H PRN PRN Reason: PAIN 1-5 Last Admin: 04/11/19 05:13 Dose: 5 mg IMAGING: * CTAP w/ contrast(04/05/19): Findings are seen with RLQ which could be on basis of appendicitis w/ contiguous tubular shaped abscesses vs. 2/2 inflammatory bowel disease possibly w/ associated abscesses. * CTAP w/o contrast (04/05/19): Prominent concentric wall thickening seen involving cecum and to a lesser extent the lower half of the ascending colon and terminal ileum. Normal-appearing appendix is not def. visualized/opacified. Several small rim-enhancing fluid structures identified on the previous CT study adjacent to tip of cecum demonstrate no opacification on current study therefore suggestive of abscesses. CT findings suggestive of acute appendicitis and less likely on basis of inflammatory/infectious enterocolitis. * Abd xray (04/06/19): Retained contrast in colon w/ drain projected over pelvis, metallic density in RUQ and tubing projected by splenix flexure, L flank, and pelvis. * CTAP (04/08/19): Within RLQ and overlying abd soft tissues note is made of a small amount of extraluminal air accumulation which could be postsurgical in nature. Several tubular shaped mildly thick-walled fluid structures are seen within R upper pelvis which may represent unopacified small bowel loops and/or small fluid collections. Development of trace b/l pleural effusions noted with associated mild basilar atelectasis. ASSESSMENT/PLAN: 23M with no past medical history who is admitted for appendicitis. #S/p Open exploration for suspected appendicitis, POD #5 -ABD/Pelvis CT: prominent concentric wall thickening is seen involving the cecum to a lesser extent the lower half of the ascending colon and terminal ileum. normal appearing appendix -ABD xray: no pathology, no constipation -POD 5 for open exploration -on Zosyn 3.375 gm Q8H (Day 5), BCx neg x24h, UCx neg; repeat U/A sent due to foul-smelling urine this AM -Morphine 4 mg q4h, Oxy 10 q4h, pain management as per surgery -Tylenol prn for fevers -Leukocytosis improving; 16.5 --> 11.5 --> 9.3 today -F/u surg recs #DVT ppx -SQH FEN -no IVFs -recheck lytes in AM -Regular diet Dispo: monitor clinically Visit type - Emergency Visit Emergency Visit: Yes ED Registration Date: 04/05/19 Care time: The patient presented to the Emergency Department on the above date and was hospitalized for further evaluation of their emergent condition. - New Patient This patient is new to me today: No - Critical Care Critical Care patient: No
--- NOTE | 2019-04-11 11:39 | PN ---
Teaching Attending Note Name of Resident: Sana Rincon ATTENDING PHYSICIAN STATEMENT I saw and evaluated the patient. I reviewed the resident's note and discussed the case with the resident. I agree with the resident's findings and plan as documented. SUBJECTIVE: RLQ abdominal pain manageable. Tolerating clear regular diet. No nausea/vomiting. Passed BMs. Fever resolved. No cough/SOB/CP/Sputum. OBJECTIVE: Afebrile, Hemodynamically Stable. Last Vital Signs Temp Pulse Resp BP Pulse Ox 97.9 F 55 L 18 120/54 L 99 04/11/19 09:41 04/11/19 09:41 04/11/19 09:41 04/11/19 09:41 04/10/19 21:00 Heart - S1, S2, RRR Lungs - Clear to auscultation Abdomen - Soft, some RLQ tenderness. Surgical site dressed. JOHN drain in-situ, minimal drainage. Bowel Sounds normal. Extremities - No edema, no calf tenderness Laboratory Results - last 24 hr 04/10/19 06:30 Plt Count 364 Current Medications Generic Name Dose Route Start Last Admin Trade Name Freq PRN Reason Stop Dose Admin Acetaminophen 325 mg 04/10/19 10:19 04/11/19 05:12 Tylenol - PO 325 mg Q6H PRN Administration PAIN 1-5 Heparin Sodium (Porcine) 5,000 unit 04/07/19 14:00 04/11/19 05:13 Heparin - SQ 5,000 unit TID BUSTER Administration Piperacillin Sod/Tazobactam 50 mls @ 100 mls/hr 04/07/19 14:00 04/11/19 10:12 Sod 3.375 gm/ Dextrose IVPB 100 mls/hr Q8H-IV BUSTER Administration Protocol Ondansetron HCl 4 mg 04/06/19 16:41 Zofran Injection IVPUSH Q6H PRN NAUSEA AND/OR VOMITING Oxycodone HCl 5 mg 04/10/19 10:19 04/11/19 05:13 Roxicodone - PO 5 mg Q6H PRN Administration PAIN 1-5 ASSESSMENT AND PLAN: 23 year old male with history of constipation presents with over 1 week history of RLQ abdominal discomfort with associated constipation, followed by profuse watery diarrhea with 1 episode of bloody diarrhea, found to have acute appendicitis on CT imaging. Acute Appendicitis with contiguous Abscess/Phlegmon POD 5 s/p lap appendectomy converted to open appendectomy intra-operatively. No surgical Cx on record. Fever appears to have resolved, Hemodynamically Stable. Leukocytosis resolved. Tolerating advanced diet Continue IV Abx (Zosyn) - ID following JOHN drain still in-situ - not for removal today as per Surgery - further management as per Sx. Continue oxycodone prn. No acute medical issues. DVT Px - Heparin as per Surgery.
[2019-04-12] MEDS: ACETAMINOPHEN 325 MG TABLET (FP) PO PRN (01:01)
[2019-04-12] MEDS: PIPERACILLIN/TAZOB 3.375 GM 3.375 GM in DEXTROSE 5%-WATER - 50 ML IVPB SCH ×2 (01:01→09:37)
[2019-04-12] MEDS: oxyCODONE HCL 5 MG TABLET PO PRN (01:02)
[2019-04-12] MEDS: HEPARIN NA (PORCINE) 5,000 UNITS/ML 1ML VIAL SQ SCH (06:02)
[2019-04-12 06:14] VITALS: PULSE 60
[2019-04-12] MEDS ORDERED: MORPHINE SULFATE 2 MG/ML VIAL IVPUSH ONE (08:16)
[2019-04-12] MEDS ORDERED: MORPHINE SULFATE 2 MG/ML VIAL ONE (08:22)
[2019-04-12] MEDS ORDERED: PIPERACILLIN/TAZOBACTAM 3.375 GM VIAL IVPB ONE (09:33)
[2019-04-12] MEDS ORDERED: DEXTROSE 5%-WATER - 50 ML IVPB ONE (09:33)
--- NOTE | 2019-04-12 09:54 | PN ---
Progress Note (short form) - Note Progress Note: 23yo M s/p appendectomy, seen and examined at bedside. Pt denies fever, chills , n/v. Pt tolerating PO and ambulating well. Pt asking to go home today. Last Vital Signs Temp Pulse Resp BP Pulse Ox 97.8 F 60 20 125/73 99 04/12/19 06:13 04/12/19 06:13 04/11/19 20:30 04/12/19 06:13 04/11/19 20:30 CBC, BMP 04/10/19 06:30 04/09/19 06:20 PE: Gen: A&O x3 Resp: breathing comfortably Abd: soft, nondistended, mild RLQ tenderness, Incision is clean with no erythema or discharge. Drain inplace RLQ with serosanguinous drainage. Problem List - Problems (1) Appendicitis with abscess Assessment/Plan: Plan -drain was removed at bedside. -pt cleared from surgery standpoint for discharge. -pt should follow up with Dr. Napier in 1 week for follow up as outpatient Case discussed with Dr. Napier who agrees with plan Code(s): K35.33 - ACUTE APPENDICITIS WITH PERF AND LOC PERITONITIS, WITH ABSCS
[2019-04-12 10:23] VITALS: BP 127/59; TEMP 98.3
--- NOTE | 2019-04-12 11:13 | PN ---
Progress Note (short form) - Note Progress Note: Attending Surgeon Concur w/ a/p as outlined by surgical PA; stressed to patient importance of office f/u next week and he should not work until after evaluation in the office next week. Ahmet Napier MD FACS
--- NOTE | 2019-04-12 11:43 | PN ---
Teaching Attending Note Name of Resident: Sana Rincon ATTENDING PHYSICIAN STATEMENT I saw and evaluated the patient. I reviewed the resident's note and discussed the case with the resident. I agree with the resident's findings and plan as documented. SUBJECTIVE:asymptomatic. some mild incisional pain. tolerating diet. +BM. denies CP, SOB, fever, chills, N/V/C/D OBJECTIVE: Last Vital Signs Temp Pulse Resp BP Pulse Ox 98.3 F 60 16 127/59 L 98 04/12/19 10:00 04/12/19 10:00 04/12/19 10:00 04/12/19 10:04/12/19 09:00 General NAD Abdomen soft slight tenderness surrouding where surgical bandage is in place in RLQ. +BS ASSESSMENT AND PLAN: 23 year old male with history of constipation presents with over 1 week history of RLQ abdominal discomfort with associated constipation, followed by profuse watery diarrhea with 1 episode of bloody diarrhea, found to have acute appendicitis on CT imaging. 1. Acute Appendicitis with contiguous Abscess/Phlegmon- s/p Lap appendectomy converted to open appendectomy intra-operatively on 04/06/19. JOHN drain pulled today. tolerating diet. can d/c today off abx per surgical team. can f/u with surgery outpatient. No surgical Cx on record. 2. DVT Px - Heparin 3. d/c home
--- NOTE | 2019-04-12 11:53 | DS ---
Physical Exam: SUBJECTIVE: Patient seen and examined at bedside. No acute events overnight. OBJECTIVE: Vital Signs Period Temp Pulse Resp BP Sys/Hwang Pulse Ox Last 24 Hr 97.7 F-98.3 F 60-70 16-20 125-127/57-73 98-99 PHYSICAL EXAM GENERAL: The patient is awake, alert, and fully oriented, in no acute distress. LUNGS: Breath sounds equal, clear to auscultation bilaterally, no wheezes, no crackles, no accessory muscle use. HEART: Regular rate and rhythm, S1, S2 without murmur, rub or gallop. ABDOMEN: JOHN drain in place, with dressing in place, serosanguinous fluid in drain EXTREMITIES: 2+ pulses, warm, well-perfused, no edema. SKIN: Warm, dry, normal turgor, no rashes or lesions noted LABS HOSPITAL COURSE: Date of Admission:04/05/19 IMAGING: * CTAP w/ contrast(04/05/19): Findings are seen with RLQ which could be on basis of appendicitis w/ contiguous tubular shaped abscesses vs. 2/2 inflammatory bowel disease possibly w/ associated abscesses. * CTAP w/o contrast (04/05/19): Prominent concentric wall thickening seen involving cecum and to a lesser extent the lower half of the ascending colon and terminal ileum. Normal-appearing appendix is not def. visualized/opacified. Several small rim-enhancing fluid structures identified on the previous CT study adjacent to tip of cecum demonstrate no opacification on current study therefore suggestive of abscesses. CT findings suggestive of acute appendicitis and less likely on basis of inflammatory/infectious enterocolitis. * Abd xray (04/06/19): Retained contrast in colon w/ drain projected over pelvis, metallic density in RUQ and tubing projected by splenix flexure, L flank, and pelvis. * CTAP (04/08/19): Within RLQ and overlying abd soft tissues note is made of a small amount of extraluminal air accumulation which could be postsurgical in nature. Several tubular shaped mildly thick-walled fluid structures are seen within R upper pelvis which may represent unopacified small bowel loops and/or small fluid collections. Development of trace b/l pleural effusions noted with associated mild basilar atelectasis. 23M with no past medical history who is admitted for appendicitis, s/p open exploration for suspected appendicitis, POD #5. Upon Date of Discharge: 04/12/19 Discharge Summary Reason For Visit: ABSCESS OF APPENDIX Condition: Improved - Instructions Diet, Activity, Other Instructions: Dr. Napier Discharge Instructions Dear ATA SIMONS, Post Operative Instructions Physical activity Resume your normal everyday activity as tolerated no heavy lifting or exercise until seen by your surgeon. You may walk unlimited amounts of and climb stairs. You may resume driving the car when you feel safe and comfortable behind the wheel. Wound care If you have a bandage, leave it on, and keep dry for 48 - 72 hours. After that time discard the outer bandage. If there are tapes on the skin under the outer bandage, leave them in place. They will peel off in the next 7 to 10 days. Do Not peel them off. You may shower 2 days after surgery. If there are tapes present on the skin, they can get wet. Diet There are no dietary restrictions. Eat healthy, high-fiber foods. Drink 6 to 8 glasses of liquid each day. This will assist in keeping your bowels are regular. Pain management You may take Tylenol or acetaminophen or Ibuprofen (for example, Motrin, Advil etc.) Call Dr. Napier for any of the following: Severe pain not relieved by medication Fever of 101 or higher Excessive bleeding or drainage on dressing Inability to urinate Call the office at [phone] for a post operative appointment in 7 - 10 days. Please also follow up with your primary care physician. If you do not have one, you may make an appointment at the residency clinic at the [facility] with Dr. Rincon within 1 week. Referrals: [facility] [place] [facility] [Provider Group] Sana Rincon RES [Resident] - 1 Week Ahmet Napier MD [Staff Physician] - 1 Week Disposition: HOME - Home Medications Comprehensive Discharge Medication List: Ambulatory Orders NK [No Known Home Medication] 04/05/19 - Discharge Referral Referred to [facility] Med [facility] No
== END 2019-04-12 13:50 | disposition home or self-care (01) | DRG 225 ==
LOC: JER 14:48 → JERBED 17:46 → J7W 19:49
PROVIDERS: ATTEND Internal Medicine
PROC: 0DTJ0ZZ Resection of Appendix, Open Approach (ICD-10-PCS; principal; 2019-04-06 12:00)
DX: K35.33 Acute appendicitis with perforation, localized peritonitis, and gangrene, with abscess (principal); R19.7 Diarrhea, unspecified; D72.829 Elevated white blood cell count, unspecified; Z53.31 Laparoscopic surgical procedure converted to open procedure
CPT/HCPCS: 36415; 74018-TC-FY; 74019-TC-FY; 74176-TC; 74177-TC; 80053; 81003; 85025; 85027; 85610; 85730; 86850; 86900; 86901; 87040; 87086; 87491; 87591; 87661; 93005; 93010; 94760; 99284-25; J0131; J1644; Q9967